=== PATIENT | male | born 1965 | race Caucasian/White ===

== ENCOUNTER 2016-03-14 17:28 | Inpatient (IN) | payer OTHER, MEDICAID ==
[~2016-03-14] VITALS: Ht 175.3 cm; Wt 65.8 kg
[~2016-03-14 17:28] MED LIST: ALBU8.5H8 IH; BEN50 PO; ENAL20TA PO; ENAL20TA70 PO; FURO80TA86 PO; HYDR-1115 PO; HYDR1TAB4 PO; ISOS20TA8 PO; LABE200T PO; LABE200T28 PO; LORA2TAB95 PO; LOVA20TA2 PO; NIFE90TA58 PO; NITSL SL; RABE20TA5 PO; RENVELA; SEVE800T10 PO; ZOLP10TA2 PO
[2016-03-14 17:30] VITALS: BP 194/105; PULSE 114; RESP 18; TEMP 99.9; O2SAT 86
[2016-03-14] MEDS ORDERED: IPRATROPIUM BROM 0.5 MG/2.5 ML VIAL.NEB (ATROVENT) INH ONE (17:45)
[2016-03-14] MEDS ORDERED: ALBUTEROL SULFATE 0.083% 2.5 MG/3 ML VIAL.NEB INH PRN (17:45)
[2016-03-14 18:09] LABS: BASOPHILS % (AUTO) 0.7 % (0.0-2.0); EOSINOPHILS # (AUTO) 0.1 K/uL (0.0-0.4); EOSINOPHILS % (AUTO) 1.5 % (0.0-4.0); HEMATOCRIT 34.3 % (36-54); HEMOGLOBIN 11.2 g/dL (14.0-18.0); LYMPHOCYTES # (AUTO) 0.4 K/uL (1.0-5.5); LYMPHOCYTES % (AUTO) 6.3 % (20.5-51.5); MEAN CORPUSCULAR HEMOGLOBIN 27 pg (27-31); MEAN CORPUSCULAR HGB CONC 33 % (32-36); MEAN CORPUSCULAR VOLUME 82 fL (79.0-98.0); MONOCYTES # (AUTO) 0.5 K/uL (0.0-1.0); MONOCYTES % (AUTO) 7.6 % (1.7-9.3); NEUTROPHILS # (AUTO) 6.1 K/uL (1.8-7.7); NEUTROPHILS % (AUTO) 83.9 % (40.0-70.0); PLATELET COUNT (AUTO) 183 K/uL (130-430); RED BLOOD CELL COUNT(AUTO) 4.18 MIL/uL (4.2-6.2); RED CELL DISTRIBUTION WIDTH 15.8 % (9.0-15.0); WHITE BLOOD COUNT (AUTO) 7.1 K/uL (4.8-10.8)
[2016-03-14 18:12] LABS: CALCIUM 9.9 mg/dL (8.4-11.0); POTASSIUM 4.7 mmol/L (3.5-5.1)
[2016-03-14 18:14] LABS: PROTHROMBIN TIME 11.2 SECS (9.5-12.5)
[2016-03-14 18:17] LABS: ALBUMIN 3.2 g/dL (3.4-4.8); TOTAL BILIRUBIN 0.5 mg/dL (0.0-1.0); TOTAL PROTEIN, SERUM 8.9 g/dL (6.4-8.3)
[2016-03-14 18:27] LABS: CREATININE 8.92 mg/dL (0.55-1.30)
[2016-03-14] MEDS ORDERED: LEVOFLOXACIN 500 MG/D5W 100 ML IV ONE (18:30)
[2016-03-14] MEDS ORDERED: DIPHENHYDRAMINE INJ 50 MG/ML VIAL IVP ONE (19:00)
[2016-03-14] MEDS ORDERED: MORPHINE 2 MG/ML INJ. SYRINGE IVP ONE (19:00)
[2016-03-14] MEDS ORDERED: METOPROLOL TARTRATE 5 MG/5 ML VIAL ONE (19:40)
[2016-03-14] MEDS ORDERED: METOPROLOL TARTRATE 5 MG/5 ML VIAL IVP ONE (19:45)
[2016-03-14] MEDS ORDERED: cloNIDine HCL 0.1 MG TABLET PO ONE (20:30)
[2016-03-14] MEDS ORDERED: INSULIN REGULAR, HUMAN 100 UNITS/ML, 10 ML VIAL (novoLIN R) SUBCUT PRN (20:45)
[2016-03-14] MEDS ORDERED: MILK OF MAGNESIA 30 ML UDC PO PRN (20:45)
[2016-03-14] MEDS ORDERED: NITROGLYCERIN 0.4 MG TAB.SUBL SL SCH (20:45)
[2016-03-14] MEDS ORDERED: LORazepam 1 MG TABLET PO ONE ×2 (20:45→21:00)
[2016-03-14] MEDS ORDERED: LevALBUTEROL HCL 1.25 MG/0.5 ML *CONC.* VIAL.NEB (XOPENEX CONC.) INH PRN (20:45)
[2016-03-14] MEDS ORDERED: hydrALAZINE HCL 20 MG/ML VIAL ONE (20:46)
[2016-03-14] MEDS ORDERED: LORazepam 1 MG TABLET ONE (20:48)
[2016-03-14] MEDS ORDERED: hydrALAZINE HCL 20 MG/ML VIAL IVP ONE (21:00)
[2016-03-14] MEDS ORDERED: ACETAMINOPHEN 650 MG SUPP.RECT RC PRN (21:00)
[2016-03-14 21:21] VITALS: BP 186/103; PULSE 105; RESP 27; TEMP 99.4; O2SAT 92
[2016-03-14] MEDS: hydrALAZINE HCL 25 MG TABLET PO SCH (21:41)
[2016-03-14] MEDS: ISOSORBIDE DINITRATE 20 MG TABLET (ISORDIL) PO SCH (21:41)
[2016-03-14] MEDS: LORazepam 1 MG TABLET PO SCH (21:41)
[2016-03-14] MEDS: ENALAPRIL MALEATE 10 MG TABLET (VASOTEC) PO SCH (21:42)
[2016-03-14 22:00] VITALS: BP 179/101; PULSE 102; RESP 26; O2SAT 93
[2016-03-14] MEDS ORDERED: AZITHROMYCIN 500 MG/VIAL (ZITHROMAX) IV ONE (22:01)
[2016-03-14] MEDS ORDERED: cefTRIAXone 1 GM IVPB PREMIX 50 ML IV ONE (22:01)
[2016-03-14] MEDS: FUROSEMIDE 80 MG TABLET PO SCH (22:02)
[2016-03-14] MEDS: AZITHROMYCIN 500 MG in NS 250 ML IV SCH (22:06)
[2016-03-14] MEDS: cefTRIAXone 1 GM in D5W 50 ML IV SCH (22:17)
[2016-03-14 23:00] VITALS: BP 124/84; PULSE 93; RESP 28; O2SAT 95
[2016-03-14 23:20] VITALS: BP 128/26; PULSE 94
[2016-03-15] VITALS (20 sets, daily range): BP systolic 105–177; BP diastolic 63–103; PULSE 80–100; RESP 18–36; TEMP 98.2–99.2; O2SAT 95–98
[2016-03-15] MEDS: hydrALAZINE HCL 20 MG/ML VIAL IVP PRN ×3 (03:18→16:08)
[2016-03-15] MEDS: MORPHINE 2 MG/ML INJ. SYRINGE IVP PRN ×2 (04:51→13:00)
[2016-03-15] MEDS ORDERED: LOVASTATIN 20 MG TABLET PO SCH (09:00)
[2016-03-15] MEDS: ENALAPRIL MALEATE 10 MG TABLET (VASOTEC) PO SCH ×2 (09:18→21:05)
[2016-03-15] MEDS: LORazepam 1 MG TABLET PO SCH ×2 (09:18→20:59)
[2016-03-15] MEDS: ISOSORBIDE DINITRATE 20 MG TABLET (ISORDIL) PO SCH ×2 (09:18→20:59)
[2016-03-15] MEDS: hydrALAZINE HCL 25 MG TABLET PO SCH ×3 (09:19→20:58)
[2016-03-15] MEDS: FUROSEMIDE 80 MG TABLET PO SCH ×2 (09:21→20:59)
[2016-03-15] MEDS ORDERED: CARVEDILOL 6.25 MG TABLET (COREG) PO ONE (13:15)
[2016-03-15] MEDS ORDERED: GABAPENTIN 100 MG CAPSULE PO ONE (13:15)
[2016-03-15] MEDS: cefTRIAXone 1 GM in D5W 50 ML IV SCH (20:57)
[2016-03-15] MEDS: CARVEDILOL 6.25 MG TABLET (COREG) PO SCH (20:58)
[2016-03-15] MEDS: GABAPENTIN 100 MG CAPSULE PO SCH (20:58)
[2016-03-15] MEDS: SIMVASTATIN 10 MG TABLET PO SCH (21:00)
[2016-03-15] MEDS: AZITHROMYCIN 500 MG in NS 250 ML IV SCH (21:52)
[2016-03-15] MEDS: ZOLPIDEM TARTRATE 5 MG TABLET PO SCH (23:20)
[2016-03-16] VITALS (8 sets, daily range): BP systolic 119–179; BP diastolic 70–101; PULSE 85–96; RESP 18–20; TEMP 96.9–98.8; O2SAT 90–98; Ht 175.3 cm; Wt 65.8 kg
[2016-03-16] MEDS: ISOSORBIDE DINITRATE 20 MG TABLET (ISORDIL) PO SCH ×2 (08:19→20:48)
[2016-03-16] MEDS: ENALAPRIL MALEATE 10 MG TABLET (VASOTEC) PO SCH ×2 (08:20→20:50)
[2016-03-16] MEDS: CARVEDILOL 6.25 MG TABLET (COREG) PO SCH ×2 (08:20→20:49)
[2016-03-16] MEDS: GABAPENTIN 100 MG CAPSULE PO SCH ×2 (08:21→20:47)
[2016-03-16] MEDS: hydrALAZINE HCL 25 MG TABLET PO SCH ×3 (08:21→20:51)
[2016-03-16] MEDS: FUROSEMIDE 80 MG TABLET PO SCH ×2 (08:22→20:48)
[2016-03-16] MEDS: LORazepam 1 MG TABLET PO SCH ×2 (08:22→20:51)
[2016-03-16] MEDS ORDERED: NIFEDIPINE 90 MG TABLET.SA (PROCARDIA XL 90 MG) PO ONE (15:45)
[2016-03-16] MEDS: SIMVASTATIN 10 MG TABLET PO SCH (20:47)
[2016-03-16] MEDS: AZITHROMYCIN 500 MG in NS 250 ML IV SCH (21:49)
[2016-03-16] MEDS: cefTRIAXone 1 GM in D5W 50 ML IV SCH (21:49)
[2016-03-16] MEDS: ZOLPIDEM TARTRATE 5 MG TABLET PO SCH (23:29)
[2016-03-17 04:37] VITALS: BP 126/71; PULSE 88; RESP 18; TEMP 98.6; O2SAT 92
[2016-03-17 07:43] LABS: CALCIUM 9.3 mg/dL (8.4-11.0); POTASSIUM 4.1 mmol/L (3.5-5.1)
[2016-03-17 08:02] LABS: CREATININE 9.43 mg/dL (0.55-1.30)
[2016-03-17 08:05] LABS: HEMATOCRIT 29.2 % (36-54); HEMOGLOBIN 9.6 g/dL (14.0-18.0); MEAN CORPUSCULAR HEMOGLOBIN 27 pg (27-31); MEAN CORPUSCULAR HGB CONC 33 % (32-36); MEAN CORPUSCULAR VOLUME 83 fL (79.0-98.0); PLATELET COUNT (AUTO) 141 K/uL (130-430); RED BLOOD CELL COUNT(AUTO) 3.51 MIL/uL (4.2-6.2); RED CELL DISTRIBUTION WIDTH 16.1 % (9.0-15.0); WHITE BLOOD COUNT (AUTO) 3.7 K/uL (4.8-10.8)
[2016-03-17] MEDS: GABAPENTIN 100 MG CAPSULE PO SCH (08:26)
[2016-03-17] MEDS: FUROSEMIDE 80 MG TABLET PO SCH (08:26)
[2016-03-17] MEDS: hydrALAZINE HCL 25 MG TABLET PO SCH ×2 (08:26→15:31)
[2016-03-17] MEDS: ENALAPRIL MALEATE 10 MG TABLET (VASOTEC) PO SCH (08:26)
[2016-03-17] MEDS: LORazepam 1 MG TABLET PO SCH (08:27)
[2016-03-17] MEDS: ISOSORBIDE DINITRATE 20 MG TABLET (ISORDIL) PO SCH (08:27)
[2016-03-17] MEDS: CARVEDILOL 6.25 MG TABLET (COREG) PO SCH (08:27)
[2016-03-17 08:31] VITALS: BP 141/78; PULSE 92; RESP 20; TEMP 98.7; O2SAT 94
[2016-03-17] MEDS ORDERED: NIFEDIPINE 90 MG TABLET.SA (PROCARDIA XL 90 MG) PO SCH (09:00)
[2016-03-17 11:37] VITALS: BP 134/68; PULSE 80; RESP 16; TEMP 97; O2SAT 96
[2016-03-17 11:54] LABS: ATYPICAL LYMPHOCYTES % 0 % (0-0); BAND % (MANUAL) 0 % (0-6); BASOPHILS % (MANUAL) 0 % (0-2); EOSINOPHILS % (MANUAL) 9 % (0-7); LYMPHOCYTES % (MANUAL) 12 % (20-46); MONOCYTES % (MANUAL) 12 % (0-11)
[2016-03-17 15:35] VITALS: BP 116/63; PULSE 56; RESP 16; TEMP 98.6; O2SAT 95
[2016-03-17] MEDS ORDERED: ALPRAZolam 0.25 MG TABLET PO PRN (17:30)
[2016-03-17 19:39] VITALS: BP 118/65; PULSE 58; RESP 16; TEMP 98.6; O2SAT 95
== END 2016-03-17 20:27 | disposition home or self-care (01) | DRG 193 ==
LOC: SED 17:28 → STU 19:14 → SIC 20:24 → STU 03-15 19:31 → SMU 03-16 20:46
PROVIDERS: ADMIT Family Medicine; ATTEND Family Medicine
PROC: 5A1D00Z (ICD-10-PCS; principal; 2016-03-16)
DX: J18.9 Pneumonia, unspecified organism (principal); N18.6 End stage renal disease; I13.2 Hypertensive heart and chronic kidney disease with heart failure and with stage 5 chronic kidney disease, or end stage renal disease; J44.0 Chronic obstructive pulmonary disease with (acute) lower respiratory infection; E44.0 Moderate protein-calorie malnutrition; I16.9 Hypertensive crisis, unspecified; D63.1 Anemia in chronic kidney disease; E11.22 Type 2 diabetes mellitus with diabetic chronic kidney disease; E78.5 Hyperlipidemia, unspecified; F41.9 Anxiety disorder, unspecified; H54.8 Legal blindness, as defined in USA; I50.9 Heart failure, unspecified; Z87.891 Personal history of nicotine dependence; Z99.2 Dependence on renal dialysis; Z82.49 Family history of ischemic heart disease and other diseases of the circulatory system; Z83.3 Family history of diabetes mellitus
CPT/HCPCS: 36415; 71010; 80048; 80053; 82962; 83605; 83880; 84484; 85007; 85025; 85027; 85610-TC; 87040-TC; 87081; 90935; 93005; 94640; 96365; 96375; 99285; J0360; J0456; J0696; J1200; J1815; J1956; J2270; J3490; J7030; J7040; J7050; J7060

== ENCOUNTER 2016-04-09 14:43 | Inpatient (IN) | payer OTHER, MEDICAID ==
[~2016-04-09] VITALS: Ht 172.7 cm; Wt 64.4 kg
[2016-04-09 15:26] VITALS: BP 185/115; PULSE 97; RESP 17; TEMP 97.8; O2SAT 90
--- NOTE | 2016-04-09 15:30 | NUR ---
Pt to bed 5, report given to Bria
--- NOTE | 2016-04-09 15:45 | NUR ---
Dr Boykin at bedside examining patient
--- NOTE | 2016-04-09 15:45 | NUR ---
# 22 gauge angiocath placed to right forearm. Use of asceptic technique. Opsite placed over site. Blood return noted. Flushed with 10 cc of normal saline. No evidence of infiltration noted. Patient tolerated well.
--- NOTE | 2016-04-09 15:46 | NUR ---
Pt brought by self,A&Ox4, anxious,pt c/o generalized weakness, SOB, productive cough, last dialysis done yesterday, cap refill <3, pt has fistula on L forearm intact, VSS.
[2016-04-09 15:52] LABS: BASOPHILS % (AUTO) 1.2 % (0.0-2.0); EOSINOPHILS # (AUTO) 0.1 K/uL (0.0-0.4); EOSINOPHILS % (AUTO) 3.9 % (0.0-4.0); HEMATOCRIT 38.4 % (36-54); HEMOGLOBIN 12.4 g/dL (14.0-18.0); LYMPHOCYTES # (AUTO) 0.4 K/uL (1.0-5.5); LYMPHOCYTES % (AUTO) 10.2 % (20.5-51.5); MEAN CORPUSCULAR HEMOGLOBIN 27 pg (27-31); MEAN CORPUSCULAR HGB CONC 32 % (32-36); MEAN CORPUSCULAR VOLUME 84 fL (79.0-98.0); MONOCYTES # (AUTO) 0.3 K/uL (0.0-1.0); MONOCYTES % (AUTO) 9.3 % (1.7-9.3); NEUTROPHILS % (AUTO) 75.4 % (40.0-70.0); PLATELET COUNT (AUTO) 160 K/uL (130-430); WHITE BLOOD COUNT (AUTO) 3.8 K/uL (4.8-10.8)
[2016-04-09] MEDS ORDERED: methylPREDNISolone SOD SUCC/PF 62.5 MG/ML VIAL IVP ONE (16:00)
[2016-04-09] MEDS ORDERED: LORazepam 2 MG/ML VIAL (FOR ER USE) IVP ONE (16:00)
[2016-04-09] MEDS ORDERED: IPRATROPIUM/ALBUTEROL SULFATE 3 ML AMPUL.NEB INH ONE (16:00)
[2016-04-09 16:13] LABS: CALCIUM 9.6 mg/dL (8.4-11.0); POTASSIUM 4.1 mmol/L (3.5-5.1)
[2016-04-09 16:23] LABS: CREATININE 11.77 mg/dL (0.55-1.30)
[2016-04-09 16:25] LABS: ALBUMIN 3.4 g/dL (3.4-4.8); TOTAL BILIRUBIN 0.5 mg/dL (0.0-1.0); TOTAL PROTEIN, SERUM 8.9 g/dL (6.4-8.3)
[2016-04-09] MEDS ORDERED: ONDANSETRON HCL 4 MG/2 ML VIAL IVP ONE ×2 (16:30→17:30)
--- NOTE | 2016-04-09 17:00 | NUR ---
Medication reconciliation completed with information provided by patient . Any prior medication reconciliation on file was reviewed and corrected.
[2016-04-09] MEDS ORDERED: MORPHINE 4 MG/ML INJ. SYRINGE IVP ONE (17:30)
[2016-04-09] MEDS ORDERED: PIPERACILLIN/TAZO 3.375 GM in NS 50 ML IV ONE (18:15)
[2016-04-09] MEDS ORDERED: VANCOMYCIN HCL 1,000 MG in NS 250 ML IV ONE (18:15)
[2016-04-09] MEDS ORDERED: PIPERACILLIN/TAZOBACTAM 3.375 GM/VIAL (ZOSYN) IV ONE (18:17)
--- NOTE | 2016-04-09 18:30 | NUR ---
ADMIT NOTE Received pt from ER to the floor with a diagnosis of PNEUMONIA, CHF. Admission process initiated. patient oriented to pain management, safety and call light-teach back done.
--- NOTE | 2016-04-09 18:35 | NUR ---
Patient will be admitted to care of Dr Gibbs . Admitted to unit. Will go to room 135. Belongings list completed. Summary report printed. Report given to Annemarie MARINELLI .
[2016-04-09 18:42] VITALS: BP 156/96; PULSE 97; RESP 18; TEMP 97.9; O2SAT 93
[2016-04-09 19:15] VITALS: BP 159/94; PULSE 96; RESP 18; TEMP 98.6
--- NOTE | 2016-04-09 19:29 | NUR ---
lab called : called lab and talked with mayo , informed him that the 2nd lactic acid is still showing active in the order and no result ,mayo stated he is not sure he will follow up .
[2016-04-09] MEDS ORDERED: LevALBUTEROL HCL 1.25 MG/0.5 ML *CONC.* VIAL.NEB (XOPENEX CONC.) INH PRN (19:30)
[2016-04-09] MEDS ORDERED: NITROGLYCERIN 0.4 MG TAB.SUBL SL PRN (19:30)
[2016-04-09] MEDS ORDERED: MILK OF MAGNESIA 30 ML UDC PO PRN (19:30)
--- NOTE | 2016-04-09 19:40 | NUR ---
INITIAL NOTES: PT IS A/O X3, ON O2 4L NC WITH SAT OF 94% AT THIS TIME , WILL MONITOR O2 SAT , DENIED ANY CHEST PAIN OR SOB AT THIS TIME ; ASSESSMENT DONE ; PT IS BLIND ; EDUCATED PT ; ENCOURAGED PT TO CALL FOR ANY HELP ; IV ON THE R FA 22 G, PATENT ,VANCOMYCIN IS STILL INFUSING STARTED IN ER ; PT DENIED ANY S/S OF ALLERGIC REACTION ; CALL GIFFORD IN REACH ; BED IN LOW AND LOCK POSITION ; WILL CONTINUE TO MONITOR.
[2016-04-09] MEDS ORDERED: DEXTROSE 50%-WATER 50 ML DISP.SYRIN IVP PRN ×2 (19:45)
[2016-04-09] MEDS ORDERED: ACETAMINOPHEN 325 MG TABLET PO PRN (19:45)
[2016-04-09] MEDS ORDERED: GLUCOSE 15 GM GEL (in 37.5 GM TUBE) PO PRN ×2 (19:45)
[2016-04-09 20:37] VITALS: BP 159/94; PULSE 96
[2016-04-09] MEDS: ENALAPRIL MALEATE 10 MG TABLET (VASOTEC) PO SCH (21:24)
[2016-04-09] MEDS: LACTOBACILLUS RHAMNOSUS GG 1 CAP CAPSULE PO SCH (21:24)
[2016-04-09] MEDS: FUROSEMIDE 80 MG TABLET PO SCH (21:24)
[2016-04-09] MEDS: hydrALAZINE HCL 25 MG TABLET PO SCH (21:25)
[2016-04-09] MEDS: SIMVASTATIN 10 MG TABLET PO SCH (21:25)
[2016-04-09] MEDS: ISOSORBIDE DINITRATE 20 MG TABLET (ISORDIL) PO SCH (21:25)
[2016-04-09] MEDS: LORazepam 1 MG TABLET PO SCH (21:26)
[2016-04-09] MEDS: INSULIN REGULAR, HUMAN 100 UNITS/ML, 10 ML VIAL (novoLIN R) SUBCUT PRN (21:34)
--- NOTE | 2016-04-09 21:35 | NUR ---
MEDICATION: DUE MEDS GIVEN ; PT IS COMFORTABLE ; ATIVAN 2 MG PER ORDER GIVEN AFTER CONFIRMING WITH THE PT AND PREVIOUS HOSPITAL RECORDS.BS 206, PROVIDED 4 UNITS OF REGULAR INSULIN ; PT RECEIVED HIS DINNER EARLIER ;WILL CONTINUE TO MONITOR.
--- NOTE | 2016-04-09 22:00 | NUR ---
URINE ANALYSIS : NOTICED THAT UA ORDER FROM ER IS NOT COLLECTED ;PROVIDED URINE COLLECTION CUP FOR UA AND EXPLAINED TO THE PT AND ENCOURAGED PT TO CALL FOR ASSIST .
--- NOTE | 2016-04-09 22:00 | NUR ---
SCD: PT REFUSED TO PUT SCD , EDUCATED PT THE NEED FOR IT, PT STATED "I CAN WALK , I NEVER HAD BLOOD CLOT " . WILL REEDUCATE PT .
--- NOTE | 2016-04-09 23:44 | NUR ---
CONSULT CALLED: Reason for Consultation: ESRF Was consult called: Yes Person who was interact: Jessi Consulting Physician: Dr. Deejay Toeldo Specialty: Renal Ux Information Architect Addendum: 04/10/16 at 0001 by Marline Vieyra CNA CONSULT CALLED: Reason for Consultation: ESRF Was consult called: Yes Person who was notified: Jessi Consulting Physician: Dr. Deejay Toledo Specialty: Nephro Ux Information Architect
[2016-04-09] MEDS: PIPERACILLIN/TAZO 2.25G/DEX-IS 50 ML IV SCH (23:56)
--- NOTE | 2016-04-10 | NUR ---
RN ROUNDS: PT IS SLEEPING, EASILY AROUSABLE ; NOT IN ANY ACUTE DISTRESS; DUE MED GIVEN ; PT IS COMFORTABLE ; DENIED ANY ALLERGIC REACTION AT THIS TIME; VITALS ARE STABLE ; WILL CONTINUE TO MONITOR.
[2016-04-10 00:31] VITALS: BP 130/73; PULSE 81; RESP 18; TEMP 97.8; O2SAT 100
[2016-04-10] MEDS: LevALBUTEROL HCL 1.25 MG/0.5 ML *CONC.* VIAL.NEB (XOPENEX CONC.) INH SCH ×4 (01:34→19:54)
--- NOTE | 2016-04-10 02:00 | NUR ---
RN ROUNDS: PT IS SLEEPING, NOT IN ANY ACUTE DISTRESS; WILL CONTINUE TO MONITOR.
--- NOTE | 2016-04-10 04:00 | NUR ---
RN ROUNDS: PT IS SLEEPING COMFORTABLY, NOT IN ANY ACUTE DISTRESS;ON O2 4 L NC ; WILL CONTINUE TO MONITOR.
[2016-04-10 04:25] VITALS: BP 119/60; PULSE 88; RESP 20; TEMP 98.4; O2SAT 94
[2016-04-10] MEDS: PIPERACILLIN/TAZO 2.25G/DEX-IS 50 ML IV SCH ×3 (05:47→17:39)
[2016-04-10] MEDS: INSULIN REGULAR, HUMAN 100 UNITS/ML, 10 ML VIAL (novoLIN R) SUBCUT PRN ×4 (06:04→22:36)
--- NOTE | 2016-04-10 06:20 | NUR ---
RN NOTES: BS 194, 2 UNITS OF R INSULIN GIVEN ORDERED .DUE IV ZOSYN IS INFUSING WELL ; PT IS COMFORTABLE .
--- NOTE | 2016-04-10 06:58 | NUR ---
CLOSING NOTES: PT IS COMFORTABLE ; ON O2 4 L NC , SAT 94% ;ZOSYN IS COMPLETED AND IV IS SL ; NOT IN ANY ACUTE DISTRESS; NO SIGNIFICANT CHANGES IN THE CONDITION ; WILL CONTINUE TO MONITOR AND WILL ENDORSE TO NEXT SHIFT NURSE .
[2016-04-10 07:18] LABS: BASOPHILS % (AUTO) 0.1 % (0.0-2.0); HEMOGLOBIN 11.2 g/dL (14.0-18.0); LYMPHOCYTES # (AUTO) 0.2 K/uL (1.0-5.5); MEAN CORPUSCULAR HEMOGLOBIN 28 pg (27-31); MEAN CORPUSCULAR HGB CONC 33 % (32-36); MEAN CORPUSCULAR VOLUME 84 fL (79.0-98.0); MONOCYTES # (AUTO) 0.1 K/uL (0.0-1.0); MONOCYTES % (AUTO) 2.2 % (1.7-9.3); NEUTROPHILS # (AUTO) 2.8 K/uL (1.8-7.7); NEUTROPHILS % (AUTO) 89.7 % (40.0-70.0); PLATELET COUNT (AUTO) 125 K/uL (130-430); RED BLOOD CELL COUNT(AUTO) 4.05 MIL/uL (4.2-6.2); RED CELL DISTRIBUTION WIDTH 16.3 % (9.0-15.0); WHITE BLOOD COUNT (AUTO) 3.1 K/uL (4.8-10.8)
[2016-04-10 07:24] LABS: CALCIUM 9.3 mg/dL (8.4-11.0); POTASSIUM 4.2 mmol/L (3.5-5.1)
--- NOTE | 2016-04-10 07:30 | NUR ---
rn notes: patient is aaox 4. afebrile. vss stable. lungs bilaterally with slight crackles noted. has 4lnc of oxygen noted. abdomen soft and non distended..has left forearm av shunt with palpable thrill and bruit noted. bed in low position. patient is legally blind on both eyes. call lights within reach. safety measures maintained. hourly rounding. informed patient to call for assistance at anytime. has iv access on the rt forearm #22. dry/intact/patent.
[2016-04-10 07:37] LABS: CREATININE 13.08 mg/dL (0.55-1.30)
[2016-04-10 07:49] VITALS: BP 148/95; PULSE 86; RESP 16; TEMP 97; O2SAT 98
--- NOTE | 2016-04-10 08:00 | NUR ---
eating food tolerating well. stable. no pain.
--- NOTE | 2016-04-10 08:23 | NUR ---
CALLED NEPHROLOGY CONSULT , DR TAVARES RE: REMIND OF THE CONSULT (ESRD) AND ELEVATED BUN AND CREATININE. SPOKE TO LEIGHA
[2016-04-10] MEDS ORDERED: LOVASTATIN 20 MG TABLET PO SCH (09:00)
--- NOTE | 2016-04-10 09:00 | NUR ---
watching tv. no pain nor distress noted. stable.
--- NOTE | 2016-04-10 09:04 | NUR ---
Nutrition Update Kevin Scale 16 noted. Pt admitted for pneumonia, CHF. Diet: CCHO, 2 gm Na BMI: 22 kg/m2 RD to follow per nutrition care standards.
--- NOTE | 2016-04-10 10:00 | NUR ---
refused medication at this time due to dialysis possibly today.
[2016-04-10] MEDS: LORazepam 1 MG TABLET PO SCH ×2 (10:04→15:58)
[2016-04-10] MEDS: FUROSEMIDE 80 MG TABLET PO SCH ×2 (10:06→20:47)
--- NOTE | 2016-04-10 10:09 | NUR ---
requested to have ativan 2 mg po due anxiety. lasix 80mg po bp is 144/101. awaiting for Dr Villalba to called back.
--- NOTE | 2016-04-10 11:46 | NUR ---
latest bs is 149 mg/dl. no coverage given as ordered.
--- NOTE | 2016-04-10 11:47 | NUR ---
Dr Villalba came and evaluate the patient.
[2016-04-10 12:14] VITALS: Ht 172.7 cm; Wt 64.4 kg
[2016-04-10 12:41] VITALS: BP 138/83; PULSE 87; RESP 16; TEMP 97.1; O2SAT 99
--- NOTE | 2016-04-10 13:00 | NUR ---
assisted to the bathroom at this time. no pain nor distress noted.
--- NOTE | 2016-04-10 14:00 | NUR ---
Dialysis started at this time. patient is in pain.
[2016-04-10] MEDS: HYDROcodone/ACETAMIN 10-325 MG TAB PO PRN ×2 (14:13→20:43)
--- NOTE | 2016-04-10 14:25 | NUR ---
urine sent to lab brought by Radha to laboratory for urinalysis.
--- NOTE | 2016-04-10 15:32 | NUR ---
still on the process of dialysis procedure.
--- NOTE | 2016-04-10 16:30 | NUR ---
assisted to the bathroom. stable. dialysis done at this time. dialysis output 3.600liters..
[2016-04-10 17:12] VITALS: BP 151/84; PULSE 90; RESP 16; TEMP 97.6; O2SAT 100
[2016-04-10] MEDS: ENALAPRIL MALEATE 10 MG TABLET (VASOTEC) PO SCH ×2 (17:43→22:33)
[2016-04-10] MEDS: hydrALAZINE HCL 25 MG TABLET PO SCH ×3 (17:44→20:46)
[2016-04-10] MEDS: ISOSORBIDE DINITRATE 20 MG TABLET (ISORDIL) PO SCH ×2 (17:45→20:44)
[2016-04-10] MEDS: LACTOBACILLUS RHAMNOSUS GG 1 CAP CAPSULE PO SCH ×2 (17:45→20:48)
--- NOTE | 2016-04-10 18:23 | NUR ---
latest bs is 142mg/dl. no coverage given at this time.
--- NOTE | 2016-04-10 19:33 | NUR ---
sbar report given to incoming nurse Kike MARINELLI
--- NOTE | 2016-04-10 19:40 | NUR ---
initial nursing notes: Patient is awake. Patient has impaired vision on both eyes. Patient has an IV access on the right forearm. Patient has an AV shunt on the LUE.
--- NOTE | 2016-04-10 20:13 | NUR ---
paged for Dr Gibbs, dialed pager #: .
[2016-04-10] MEDS: SIMVASTATIN 10 MG TABLET PO SCH (20:48)
--- NOTE | 2016-04-10 21:40 | NUR ---
nursing rounds: Patient's BP is elevated: 191/109 mmHg and P=90 bpm, Dr. Gibbs notified no new order given. Patient stated that he's BP is "usually high." Patient denies of having pain. Patient denies of having headache.
--- NOTE | 2016-04-10 23:40 | NUR ---
nursing rounds: Patient ambulates to the bathroom with assist. Patient had no episode of fall and no injuries.
[2016-04-11] VITALS (7 sets, daily range): BP systolic 140–196; BP diastolic 77–115; PULSE 82–102; RESP 16–18; TEMP 96.6–98.9; O2SAT 92–98
[2016-04-11] MEDS: PIPERACILLIN/TAZO 2.25G/DEX-IS 50 ML IV SCH ×5 (00:18→23:38)
[2016-04-11] MEDS: LevALBUTEROL HCL 1.25 MG/0.5 ML *CONC.* VIAL.NEB (XOPENEX CONC.) INH SCH ×4 (00:30→20:20)
--- NOTE | 2016-04-11 01:40 | NUR ---
nursing rounds: Patient is asleep. Patient has no shortness of breath.
--- NOTE | 2016-04-11 03:40 | NUR ---
nursing rounds: Patient ambulates to the bathroom with assist. Patient had no episode of fall and no injuries.
--- NOTE | 2016-04-11 05:40 | NUR ---
nursing rounds: Patient is sleeping in bed. Patient has no respiratory distress.
[2016-04-11 07:13] LABS: CALCIUM 9.4 mg/dL (8.4-11.0); POTASSIUM 3.9 mmol/L (3.5-5.1)
[2016-04-11 07:29] LABS: CREATININE 9.05 mg/dL (0.55-1.30)
--- NOTE | 2016-04-11 07:30 | NUR ---
Initial notes: pt awake, alert and oriented. I.V. access patent. Stable. Blind on both eyes. Plan of care discussed. Call light within reach. Report given at bedside.
--- NOTE | 2016-04-11 07:31 | NUR ---
closing nursing notes: Patient is awake, alert and oriented X 4. Patient is in no acute respiratory distress. 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 Provided nursing report to incoming morning shift nurse, Sola Bonilla RN, at patient's bedside.
[2016-04-11] MEDS: LORazepam 1 MG TABLET PO SCH ×2 (08:29→20:39)
[2016-04-11] MEDS: FUROSEMIDE 80 MG TABLET PO SCH ×2 (08:30→20:24)
--- NOTE | 2016-04-11 08:30 | NUR ---
rounds: V/S taken. Increased BP. morning medication given including hypertension meds. Continue to monitor BP.
[2016-04-11] MEDS: hydrALAZINE HCL 25 MG TABLET PO SCH ×3 (08:31→22:43)
[2016-04-11] MEDS: ISOSORBIDE DINITRATE 20 MG TABLET (ISORDIL) PO SCH ×2 (08:31→20:40)
[2016-04-11] MEDS: LACTOBACILLUS RHAMNOSUS GG 1 CAP CAPSULE PO SCH ×2 (08:31→20:40)
[2016-04-11] MEDS: ENALAPRIL MALEATE 10 MG TABLET (VASOTEC) PO SCH ×2 (08:32→20:20)
[2016-04-11] MEDS: HYDROcodone/ACETAMIN 10-325 MG TAB PO PRN (10:22)
--- NOTE | 2016-04-11 13:13 | NUR ---
rounds: pt on bed resting. no distress noted.
--- NOTE | 2016-04-11 14:30 | NUR ---
Increased BP: Adrian paged for high BP. Adrian came to the unit with new order.
[2016-04-11] MEDS ORDERED: NIFEDIPINE 90 MG TABLET.SA (PROCARDIA XL 90 MG) PO ONE (15:00)
[2016-04-11] MEDS ORDERED: hydrALAZINE HCL 25 MG TABLET PO ONE (15:00)
--- NOTE | 2016-04-11 15:10 | NUR ---
medication: new medication given to pt for high BP. Pt after taken the medication requested to sleep and not to be disturbed.
--- NOTE | 2016-04-11 16:30 | NUR ---
blood sugar: accu check done. no insulin coverage needed.
--- NOTE | 2016-04-11 19:00 | NUR ---
closing notes: pt on bed resting. stable. call light within reach. report given to bedside.
--- NOTE | 2016-04-11 19:30 | NUR ---
initial nursing notes: Patient is awake. Patient's IV access on the right forearm intact. Patient denies of having pain. Patient stated that he will have dialysis tomorrow.
[2016-04-11] MEDS: SIMVASTATIN 10 MG TABLET PO SCH (20:25)
--- NOTE | 2016-04-11 21:30 | NUR ---
nursing rounds: Patient ambulates to the bathroom with assist. Patient had no episode of fall and no injuries.
--- NOTE | 2016-04-11 23:30 | NUR ---
nursing rounds: Patient is sleeping in bed. Patient has no respiratory distress.
[2016-04-12 00:23] VITALS: BP 134/85; PULSE 102; RESP 18; TEMP 99.2; O2SAT 93
[2016-04-12] MEDS: LevALBUTEROL HCL 1.25 MG/0.5 ML *CONC.* VIAL.NEB (XOPENEX CONC.) INH SCH ×4 (01:20→19:30)
--- NOTE | 2016-04-12 01:30 | NUR ---
nursing rounds: Patient requested for his blood sugar to be rechecked. Patient's blood sugar: 111. Patient has no hypo-/hyperglycemic episode.
--- NOTE | 2016-04-12 03:30 | NUR ---
nursing rounds: Patient is asleep. Patient's bed alarm kept on.
[2016-04-12 03:34] VITALS: BP 130/75; PULSE 98; RESP 18; TEMP 98.3; O2SAT 94
[2016-04-12] MEDS: hydrALAZINE HCL 25 MG TABLET PO SCH ×3 (05:07→21:53)
[2016-04-12] MEDS: PIPERACILLIN/TAZO 2.25G/DEX-IS 50 ML IV SCH ×3 (05:09→17:25)
--- NOTE | 2016-04-12 05:30 | NUR ---
nursing rounds: Patient is sleeping in bed. Kept siderails up X 3 for patient's safety.
--- NOTE | 2016-04-12 07:16 | NUR ---
closing nursing notes: Patient is awake, alert and oriented X 4. Patient is in no acute respiratory distress. 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 Provided nursing report to incoming morning shift nurse, Sola Bonilla RN, at patient's bedside.
--- NOTE | 2016-04-12 07:30 | NUR ---
Initial rounds: pt sitting on the chair. stable. requesting Ativan. Verbalized having anxiety. call light within reach. report received at bedside.
[2016-04-12 07:50] VITALS: BP 167/103; PULSE 96
[2016-04-12 08:00] VITALS: BP 167/103; PULSE 100; RESP 18; TEMP 97.4; O2SAT 97
[2016-04-12] MEDS: LACTOBACILLUS RHAMNOSUS GG 1 CAP CAPSULE PO SCH ×2 (08:13→20:19)
[2016-04-12] MEDS: LORazepam 1 MG TABLET PO SCH (08:13)
--- NOTE | 2016-04-12 08:22 | NUR ---
medication: anxiety medication given as scheduled. withhold the BP meds due to dialysis. followed up dialysis to do in the morning.
--- NOTE | 2016-04-12 10:15 | NUR ---
Dialysis: dialysis nurse arrived. Patient will be on dialysis.
--- NOTE | 2016-04-12 11:30 | NUR ---
rounds: pt observed restless while on going dialysis. Verbalized having anxiety, anxiety meds given 2 hours ago and not yet due as schedule. He also complained of generalized pain. Pain meds given and repositioned the patient. [facility] [place]. He verbalized feeling better.
[2016-04-12] MEDS: HYDROcodone/ACETAMIN 10-325 MG TAB PO PRN ×2 (11:41→20:31)
[2016-04-12 12:27] VITALS: BP 167/94; PULSE 106; RESP 19; TEMP 97; O2SAT 91
[2016-04-12] MEDS: ENALAPRIL MALEATE 10 MG TABLET (VASOTEC) PO SCH ×2 (14:16→20:19)
[2016-04-12] MEDS: ISOSORBIDE DINITRATE 20 MG TABLET (ISORDIL) PO SCH ×2 (14:16→20:19)
[2016-04-12] MEDS: NIFEDIPINE 90 MG TABLET.SA (PROCARDIA XL 90 MG) PO SCH (14:17)
[2016-04-12] MEDS: FUROSEMIDE 80 MG TABLET PO SCH ×2 (14:18→20:18)
--- NOTE | 2016-04-12 14:20 | NUR ---
BP medication: Dialysis done and elevated BP observed. BP medication given late due to dialysis.
[2016-04-12] MEDS: LORazepam 1 MG TABLET PO PRN (16:17)
[2016-04-12 16:23] VITALS: BP 173/93; PULSE 98; RESP 18; TEMP 98.1; O2SAT 99
--- NOTE | 2016-04-12 17:20 | NUR ---
Blood sugar: accu check done. no insulin coverage needed.
--- NOTE | 2016-04-12 18:40 | NUR ---
closing notes: pt on bed resting. no distress noted. needs attended. call light within reach. report will be given to incoming nurse.
[2016-04-12] MEDS ORDERED: VANCOMYCIN HCL 750 MG in NS 250 ML IV SCH (20:00)
--- NOTE | 2016-04-12 20:00 | NUR ---
ROUNDS PATIENT RESTING COMFORTABLY IN BED, NOT IN DISTRESS, VITALS STABLE, NO PAIN AND DISCOMFORT AT THIS TIME. ASSESSMENT DONE AND DOCUMENTED. SEE FLOWSHEET. NEEDS ATTENDED TO. SAFETY AND FALL PRECAUTION MEASURES IN PLACED. BED IN LOW AND LOCKED POSITION. CALL LIGHT PLACED WITH PATIENT.
[2016-04-12] MEDS: SIMVASTATIN 10 MG TABLET PO SCH (20:19)
--- NOTE | 2016-04-12 21:15 | NUR ---
MEDICATION DUE MEDICATIONS GIVEN SCHEDULED, TOLERATED WELL. WILL CONTINUE TO MONITOR.
[2016-04-12] MEDS: ZOLPIDEM TARTRATE 5 MG TABLET PO PRN (22:19)
--- NOTE | 2016-04-13 | NUR ---
PATIENT RESTING: Patient resting quietly. No acute distress noted. Vital signs within normal range.
[2016-04-13 00:09] VITALS: BP 140/84; PULSE 95; RESP 18; TEMP 97.8; O2SAT 91
[2016-04-13] MEDS: LORazepam 1 MG TABLET PO PRN ×3 (00:47→16:45)
[2016-04-13] MEDS: PIPERACILLIN/TAZO 2.25G/DEX-IS 50 ML IV SCH ×5 (00:47→23:07)
[2016-04-13] MEDS: LevALBUTEROL HCL 1.25 MG/0.5 ML *CONC.* VIAL.NEB (XOPENEX CONC.) INH SCH ×4 (01:00→19:54)
--- NOTE | 2016-04-13 02:15 | NUR ---
ROUNDS PATIENT ASLEEP, NO SIGNS OF ANY PAIN AND DISCOMFORT NOTED. WILL CONTINUE TO MONITOR.
[2016-04-13 04:14] VITALS: BP 146/93; PULSE 99; RESP 16; TEMP 97.7; O2SAT 91
--- NOTE | 2016-04-13 04:14 | NUR ---
PATIENT RESTING: Patient resting quietly. No acute distress noted. Vital signs within normal range.
[2016-04-13] MEDS: hydrALAZINE HCL 25 MG TABLET PO SCH ×3 (05:55→22:39)
--- NOTE | 2016-04-13 06:09 | NUR ---
CLOSING NOTES PATIENT AWAKE, VITALS STABLE, DENIES ANY PAIN AT THIS TIME. ALL NEEDS ATTENDED TO. SAFETY MEASURES MAINTAINED. BED IN LOW AND LOCKED POSITION. CALL LIGHT PLACED WITHIN REACH.
[2016-04-13 06:55] LABS: BASOPHILS % (AUTO) 1.1 % (0.0-2.0); EOSINOPHILS # (AUTO) 0.3 K/uL (0.0-0.4); EOSINOPHILS % (AUTO) 7.6 % (0.0-4.0); HEMATOCRIT 35.7 % (36-54); HEMOGLOBIN 11.8 g/dL (14.0-18.0); LYMPHOCYTES # (AUTO) 0.4 K/uL (1.0-5.5); LYMPHOCYTES % (AUTO) 8.9 % (20.5-51.5); MEAN CORPUSCULAR HEMOGLOBIN 28 pg (27-31); MEAN CORPUSCULAR HGB CONC 33 % (32-36); MEAN CORPUSCULAR VOLUME 84 fL (79.0-98.0); MONOCYTES # (AUTO) 0.5 K/uL (0.0-1.0); MONOCYTES % (AUTO) 12.1 % (1.7-9.3); NEUTROPHILS # (AUTO) 3.1 K/uL (1.8-7.7); NEUTROPHILS % (AUTO) 70.3 % (40.0-70.0); PLATELET COUNT (AUTO) 189 K/uL (130-430); RED BLOOD CELL COUNT(AUTO) 4.27 MIL/uL (4.2-6.2); RED CELL DISTRIBUTION WIDTH 15.8 % (9.0-15.0); WHITE BLOOD COUNT (AUTO) 4.3 K/uL (4.8-10.8)
[2016-04-13 06:58] LABS: CALCIUM 9.1 mg/dL (8.4-11.0); POTASSIUM 4.2 mmol/L (3.5-5.1)
[2016-04-13 07:31] LABS: CREATININE 9.15 mg/dL (0.55-1.30)
--- NOTE | 2016-04-13 08:00 | NUR ---
AM NOTES PT AAOX4 WITH COMPLAINTS OF MIGRAINE HEADACHE / THAT IS ESCALATING. PT FEELS RESTLESS AND ANXIOUS. STATES HE DOES NOT FEEL TOO WELL THIS MORNING. WILL MEDICATE WITH ATIVAN. NO SOB, DIFFICULTY BREATHING OR DISTRESS NOTED. O2 VIA NASAL CANNULA @ 2L IS OFF AT THIS TIME. AV SHUNT TO LEFT FOREARM WITH BRUIT AND THRILL PRESENT. IV TO RIGHT FOREARM #22G SALINE LOCKED PATENT AND FLUSHING. PT IS ON A RESTRICTED FLUID INTAKE. INFORMED CLAIMS SPECIALIST REGARDING FLUID RESTRICTION. PT IS LEGALLY BLIND. EDUCATED ABOUT SAFETY AND FALL RISK PRECAUTIONS. FALL RISK ARM BAND PRESENT AND BED ALARM IS ARMED. PT REFUSED TO WEAR BILATERAL SCD. ENCOURAGED TO CALL FOR ASSISTANCE. CALL LIGHT WITHIN REACH. WILL MONITOR.
[2016-04-13 08:31] VITALS: BP 171/98; PULSE 105; RESP 20; TEMP 98.1; O2SAT 96
[2016-04-13] MEDS: NIFEDIPINE 90 MG TABLET.SA (PROCARDIA XL 90 MG) PO SCH (08:50)
[2016-04-13] MEDS: ENALAPRIL MALEATE 10 MG TABLET (VASOTEC) PO SCH ×2 (08:51→20:55)
[2016-04-13] MEDS: LACTOBACILLUS RHAMNOSUS GG 1 CAP CAPSULE PO SCH ×2 (08:51→20:59)
[2016-04-13] MEDS: HYDROcodone/ACETAMIN 10-325 MG TAB PO PRN ×3 (08:52→20:54)
[2016-04-13] MEDS: FUROSEMIDE 80 MG TABLET PO SCH ×2 (08:52→20:57)
[2016-04-13] MEDS: ISOSORBIDE DINITRATE 20 MG TABLET (ISORDIL) PO SCH ×2 (08:52→20:57)
--- NOTE | 2016-04-13 08:58 | NUR ---
NORCO MEDICATED WITH NORCO 10-325MG 1 TABLET FOR MIGRAINE HEADACHE 07/25. SAFETY AND FALL PRECAUTIONS ENFORCED WITH BED ALARM ARMED. ENCOURAGED TO CALL FOR ASSISTANCE. CALL LIGHT WITHIN REACH.
--- NOTE | 2016-04-13 10:00 | NUR ---
ROUNDS PT ASLEEP. NO SIGNS OF FACIAL GRIMACING FOR PAIN OR DISCOMFORT. NO DISTRESS NOTED. BED ALARM ARMED. CALL LIGHT WITHIN REACH. WILL MONITOR.
--- NOTE | 2016-04-13 10:01 | NUR ---
PAGED DR TAVARES FOR CRITICAL LABS. SPOKE WITH VIC
--- NOTE | 2016-04-13 10:14 | NUR ---
DR. CHAITANYA SHAY CALLED BACK AND INFORMED OF CRITICAL LAB FOR CREATININE 9.15. NO ORDERS GIVEN. MD WILL SEE PATIENT LATER WHEN HE COMES FOR HIS ROUNDS.
[2016-04-13 11:34] VITALS: BP 148/81; PULSE 94; RESP 19; TEMP 97.9; O2SAT 99
--- NOTE | 2016-04-13 12:00 | NUR ---
ROUNDS PT EATING LUNCH. NO SIGNIFICANT CHANGES NOTED. BLOOD SUGAR MONITOR 82. ENCOURAGED TO CONSUME HIS LUNCH. NO DISTRESS NOTED. ENCOURAGED TO CALL FOR ASSISTANCE. CALL LIGHT WITHIN REACH. WILL MONITOR.
--- NOTE | 2016-04-13 14:00 | NUR ---
ASLEEP PT ASLEEP. NO SIGNS OF FACIAL GRIMACING FOR PAIN OR DISCOMFORT. NO DISTRESS NOTED. WILL MONITOR.
--- NOTE | 2016-04-13 14:30 | NUR ---
NORCO MEDICATED PATIENT WITH NORCO FOR HEADACHE PAIN 05/25. ENCOURAGED TO CALL FOR ASSISTANCE. REMINDED ABOUT FALL AND SAFETY PRECAUTIONS. BED ALARM ARMED AND CALL LIGHT WITHIN REACH.
--- NOTE | 2016-04-13 16:30 | NUR ---
ROUNDS PT AWAKE SITTING UP ON EDGE OF BED. PT FEELS RESTLESS AND ANXIOUS. MEDICATED WITH ATIVAN 2MG BY MOUTH. NO COMPLAINTS OF PAIN OR DISCOMFORT AT THIS TIME. NO DISTRESS NOTED. RE-EDUCATED ABOUT SAFETY AND FALL PRECAUTIONS. ENCOURAGED TO CALL FOR ASSISTANCE. CALL LIGHT WITHIN REACH. WILL MONITOR.
--- NOTE | 2016-04-13 18:30 | NUR ---
CLOSING NOTES PT AWAKE SITTING UP IN BED. NO SIGNIFICANT CHANGES NOTED. WILL ENDORSE CARE TO INCOMING NURSE.
--- NOTE | 2016-04-13 19:30 | NUR ---
initial nursing notes: Patient is awake. Patient's IV access on the right AC intact. Encouraged patient to use call light when getting out of bed.
[2016-04-13 19:55] VITALS: BP 149/88; PULSE 97; RESP 15; TEMP 98.1
[2016-04-13] MEDS: SIMVASTATIN 10 MG TABLET PO SCH (20:58)
--- NOTE | 2016-04-13 21:30 | NUR ---
nursing rounds: Patient calmly resting in bed. Kept patient's bed alarm on.
--- NOTE | 2016-04-13 23:30 | NUR ---
nursing rounds: Patient is sleeping in bed. Kept siderails up X 3 for patient's safety.
[2016-04-14 00:51] VITALS: BP 147/88; PULSE 97; RESP 20; TEMP 98.2; O2SAT 95
--- NOTE | 2016-04-14 01:30 | NUR ---
nursing rounds: Patient ambulates to the bathroom with assist. Patient had no episode of fall and no injuries.
--- NOTE | 2016-04-14 03:30 | NUR ---
nursing rounds: Patient is asleep. Patient has no shortness of breath.
[2016-04-14 04:25] VITALS: BP 158/99; PULSE 97; RESP 18; TEMP 97.9; O2SAT 97
[2016-04-14] MEDS: LevALBUTEROL HCL 1.25 MG/0.5 ML *CONC.* VIAL.NEB (XOPENEX CONC.) INH SCH ×4 (04:33→19:51)
[2016-04-14] MEDS: PIPERACILLIN/TAZO 2.25G/DEX-IS 50 ML IV SCH ×4 (05:14→23:16)
[2016-04-14] MEDS: hydrALAZINE HCL 25 MG TABLET PO SCH ×3 (05:15→23:17)
--- NOTE | 2016-04-14 05:30 | NUR ---
nursing rounds: Patient calmly resting in bed. Patient has no respiratory distress.
[2016-04-14 07:36] LABS: CALCIUM 9.7 mg/dL (8.4-11.0); POTASSIUM 4.6 mmol/L (3.5-5.1)
--- NOTE | 2016-04-14 07:43 | NUR ---
closing nursing notes: Patient is awake, alert and oriented X 4. Patient is in no acute respiratory distress. 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 Provided nursing report to incoming morning shift nurse, YVES Merritt, at patient's bedside.
--- NOTE | 2016-04-14 07:57 | NUR ---
AM ROUNDS: No s/s of distress noted. Will continue to monitor.
[2016-04-14 07:58] LABS: CREATININE 11.56 mg/dL (0.55-1.30)
[2016-04-14 08:00] VITALS: BP 157/95; PULSE 103; RESP 20; TEMP 97.7; O2SAT 95
[2016-04-14] MEDS: ENALAPRIL MALEATE 10 MG TABLET (VASOTEC) PO SCH ×2 (08:08→20:31)
[2016-04-14] MEDS: NIFEDIPINE 90 MG TABLET.SA (PROCARDIA XL 90 MG) PO SCH (08:08)
[2016-04-14] MEDS: HYDROcodone/ACETAMIN 10-325 MG TAB PO PRN ×2 (08:11→20:25)
[2016-04-14] MEDS: LACTOBACILLUS RHAMNOSUS GG 1 CAP CAPSULE PO SCH (08:11)
[2016-04-14] MEDS: FUROSEMIDE 80 MG TABLET PO SCH ×2 (08:12→20:25)
[2016-04-14] MEDS: ISOSORBIDE DINITRATE 20 MG TABLET (ISORDIL) PO SCH ×2 (08:12→20:24)
[2016-04-14] MEDS: LORazepam 1 MG TABLET PO PRN ×2 (08:14→17:29)
--- NOTE | 2016-04-14 08:15 | NUR ---
HEMODIALYSIS: Hemodialysis started. Dialysis nurse at bedside.
--- NOTE | 2016-04-14 10:06 | NUR ---
PATIENT RESTING: Patient resting quietly. No acute distress noted. Vital signs within normal range.
--- NOTE | 2016-04-14 10:09 | NUR ---
PAGED: Dr. Gibbs paged for pain and anxiety.
[2016-04-14] MEDS ORDERED: HYDROmorphone 1 MG INJ. 1 MG/ML AMPUL IM PRN (10:15)
[2016-04-14 12:00] VITALS: BP 159/98; PULSE 102; RESP 20; TEMP 98; O2SAT 97
--- NOTE | 2016-04-14 12:18 | NUR ---
PATIENT RESTING: Patient resting quietly. No acute distress noted. Vital signs within normal range.
--- NOTE | 2016-04-14 14:12 | NUR ---
PATIENT RESTING: Patient resting quietly. No acute distress noted. Vital signs within normal range.
[2016-04-14 16:00] VITALS: BP 187/106; PULSE 104; RESP 21; TEMP 97.4; O2SAT 93
--- NOTE | 2016-04-14 16:10 | NUR ---
PATIENT RESTING: Patient resting quietly. No acute distress noted. Vital signs within normal range.
--- NOTE | 2016-04-14 18:04 | NUR ---
CLOSING NOTE: All needs met. No change in assessment. Will endorse to NOC shift nurse.
--- NOTE | 2016-04-14 19:45 | NUR ---
PM SHIFT ASSESSMENT Received patient sitting up in bed, aox4. Vitals stable. Denies any pain or discomfort at this time. No sob noted. IV line to right forearm intact and patent. no signs of infiltration noted. Left arm with av shunt. Patient ambulatory with assistance, assisted to bathroom earlier, steady gait noted. POC discussed, verbalized understanding, compliant. Educated on fall and safety measures. Oriented to use call light for nurse assistance. Call light within reach, will monitor.
[2016-04-14 20:03] VITALS: BP 176/100; PULSE 107; RESP 20; TEMP 98.1; O2SAT 94
[2016-04-14] MEDS: SIMVASTATIN 10 MG TABLET PO SCH (20:25)
--- NOTE | 2016-04-14 21:00 | NUR ---
RN ROUNDS Patient's due medications administered, blood sugar check 153. Refused sliding scale per insulin. Patient given Rupert 1 tab for pain management. Educated on fall and safety precautions. Patient verbalized understanding.
[2016-04-14] MEDS: ZOLPIDEM TARTRATE 5 MG TABLET PO PRN (21:27)
--- NOTE | 2016-04-14 21:34 | NUR ---
RN ROUNDS Patient sitting up in chair, denies any pain at this time, administered ambien 10 mg to help promote sleep, safety measures in place, call light within patients reach, will monitor.
--- NOTE | 2016-04-14 22:30 | NUR ---
RN ROUNDS Patient resting quietly, no distress noted, safety measures in place, call light within reach, will continue to monitor.
[2016-04-15] VITALS (7 sets, daily range): BP systolic 84–199; BP diastolic 50–120; PULSE 79–106; RESP 16–19; TEMP 96.3–98.1; O2SAT 92–99
--- NOTE | 2016-04-15 00:30 | NUR ---
RN ROUNDS/IV Patient's IV line accidently removed, new IV line placed on right forearm with 22 gauge catheter, secured with opsite and tape, patients due medications administered, vitals stable. Patient denies any pain at this time, call light remains within reach, will monitor.
[2016-04-15] MEDS: LevALBUTEROL HCL 1.25 MG/0.5 ML *CONC.* VIAL.NEB (XOPENEX CONC.) INH SCH ×3 (01:30→13:00)
--- NOTE | 2016-04-15 01:59 | NUR ---
RN ROUNDS Patient awake in bed, no sob noted, needs attended to, safety and fall precautions in place, bed alarm on, call light within reach, will continue to monitor.
--- NOTE | 2016-04-15 03:59 | NUR ---
RN ROUNDS Patient awake sitting up in bed, no sob noted, vitals stable, denies any pain or discomfort at this time, safety and fall precautions in place, call light within reach, will continue to monitor.
[2016-04-15] MEDS: hydrALAZINE HCL 25 MG TABLET PO SCH ×2 (06:05→14:51)
[2016-04-15] MEDS: LORazepam 1 MG TABLET PO PRN (06:05)
[2016-04-15] MEDS: PIPERACILLIN/TAZO 2.25G/DEX-IS 50 ML IV SCH ×2 (06:07→11:48)
--- NOTE | 2016-04-15 06:22 | NUR ---
RN ROUNDS Patient sitting up in bed, in no distress, due medications administered, blood sugar check this am 78, patient given 1 cranberry juice, requested to have Ativan po. Educated on fall and safety measures, compliant. Patient needs attended to. Call light within reach, will monitor until report given to am nurse.
--- NOTE | 2016-04-15 07:25 | NUR ---
RN Notes: Pt is ao x 4. Afebrile, vss stable, lung bilaterally diminished at the bases. On room air pt is sating 96%. Abdomen is soft, non-distended, has an AV shunt on the left forearm with palpable thrill and bruit. Has an iv access on the right forearm 22 gauge patent and dry. Bed within low position, call light within reach, safety measures maintained, informed pt to call for assistance.
--- NOTE | 2016-04-15 08:00 | NUR ---
Listening to the tv with no distress and no pain noted while eating breakfast at this time assisting with ADL's.
--- NOTE | 2016-04-15 09:09 | NUR ---
Pt complained of migraine headache and left arm AV shunt pain. Dilaudid 1 mg IV given. Made comfortable.
[2016-04-15] MEDS: FUROSEMIDE 80 MG TABLET PO SCH (09:10)
[2016-04-15] MEDS: ENALAPRIL MALEATE 10 MG TABLET (VASOTEC) PO SCH (09:10)
[2016-04-15] MEDS: ISOSORBIDE DINITRATE 20 MG TABLET (ISORDIL) PO SCH (09:11)
[2016-04-15] MEDS: NIFEDIPINE 90 MG TABLET.SA (PROCARDIA XL 90 MG) PO SCH (09:11)
--- NOTE | 2016-04-15 10:00 | NUR ---
Due medications given as ordered. Made pt comfortable, assisted with ADL's.
--- NOTE | 2016-04-15 11:54 | NUR ---
Latest BS 81 mg no coverage given, apple juice given to patient. Made pt comfortable. Zozyn IV given at this time.
[2016-04-15] MEDS: HYDROcodone/ACETAMIN 10-325 MG TAB PO PRN (12:02)
--- NOTE | 2016-04-15 12:03 | NUR ---
Pt complains of pain on the left arm. [place] 10/325mg po given assist on adl's.
--- NOTE | 2016-04-15 13:38 | NUR ---
Nutrition F/U Admitting Diagnosis PNA, CHF Past Medical History DM, HTN, ESRD, legally blind, chronic renal failure on HD, chronic anemia per MD notes Pertinent Medications Vancomycin HCl/NaCl IV, piperacillin/tazobactum, zocor, ativan, dilaudid lasix, D50% syringe, glucose PO, norco, vancomycin per pharmacy, SSI, MOM Current Diet Order CCHO, 2 gm Na (x5 days) Height (Feet) 5 feet Height (Inches) 8.00 inches Weight (Pounds) 145 pounds (admission); 142 lb, 64 kg (04/15/16) Weight (Calculated Kilograms) 65.009754 kilograms Patient Weight 65.771 kg Body Mass Index 22.04 kg/m2 (normal) [place]/Adjusted Body Weight IBW: 154 lb (70 kg), 94% of IBW Estimated Needs 9637-6615 kcal/day (25-30 kcal/kg IBW for maintenance) Grams of Protein per Day 84-98 g/day (1.2-1.4 g/kg IBW for ESRD on HD) Fluid Intake Goal Per MD for CHF and ESRD Pertinent Labs 04/13/16: WBC 4.3 L, Hgb 11.8 L (improving), Hct 35.7 L (improving) 04/14/16: BNP 4440 H, BG 95 WNL (improved), POC BG 153 H, Na 130 L, BUN 71 H, CRE 11.56 H (improving), eGFR 5 L Other Subjective Data Physical Assessment: Pt was awake and alert, sitting up in bed at time of visit. 142 lb (64 kg) recorded 04/15/16. Pt denies any significant weight changes. GI Integrity: Per EMR, active bowel sounds present. BM x2 today, normal stool. Pt reports BM up to x3/day while he has been here. Pt denies n/v. PO Intakes: Pt reports good appetite. PO records average 90% x14 meals. Integumentary: Kevin score 20, no skin issues noted. Plans/Procedures: Per MD notes, continue HD and control fluid balance. Per pt, possible DC today. Current diet is appropriate. Pt is tolerating and meeting optimal nutritional needs. Pt declined nutrition education at this time. Problem, Etiology, Signs/Symptoms (modified) Altered nutrition-related labs related to endocrine and renal dysfunctions as evidenced by BUN 71, CRE 11.56, eGFR 5, and POC BG 153. *updated lab values Expected Outcomes or Goals (modified) 1. Monitor PO intakes with goal of meeting at least 75% of estimated needs with acceptable tolerance 2. Labs trending within normal limits 3. Weight maintenance 4. Maintain skin integrity 5. Maintain normal GI function Dietitian Recommendations (modified) * Continue CCHO, 2 gm Na diet per MD order Follow Up Low Risk: F/U in 7 days Addendum: 04/15/16 at [address] CORRECTIONS: New BMI: 21.6 kg/m2 (normal) 04/15/16 customer experience intern provided nutrition education on 04/10/16. Please see interdisciplinary teaching record for details. SULMA reviewed/approved marketing research intern's note. NAOMI, SULMA
--- NOTE | 2016-04-15 14:00 | NUR ---
sitting on edge of the bed. stable. listening to tv. verbalized wants orange and apple juice
--- NOTE | 2016-04-15 15:00 | NUR ---
saline lock removed on the rt forearm. Transitional care documents given to the patient, explained each medication one by one with indications, dosage, frequency and what time to take. Return follow up with Dr Cárdenas tomorrow after dialysis. SDHS id band removed, awaiting for the daughter to come and picker packer the patient.
--- NOTE | 2016-04-15 15:24 | NUR ---
TRANSITIONAL CARE DOCUMENTS GIVEN TO THE PATIENT. AWAITING FOR THE DAUGHTER TO COME AND NETWORK DEVELOPER THE PATIENT.
--- NOTE | 2016-04-15 16:10 | NUR ---
patient left in stable condition. Lisa came to burr picker the patient. wheeled by the Portfolio Analyst to the lobby.
--- NOTE | 2016-04-21 10:47 | NUR ---
Discharge Follow Up Phone Call [employer]INO [employer]OT SUPERVISOR phoned patient, , and left voicemail messages on 04/16/16, 04/20/16 and 04/21/16 with offer of assistance and Social Service contact information. No further calls will be made.
[2016-05-13] MEDS ORDERED: INSULIN REGULAR, HUMAN 100 UNITS/ML, 10 ML VIAL (novoLIN R) SUBCUT PRN (11:15)
== END 2016-04-15 15:30 | disposition home or self-care (01) | DRG 291 ==
LOC: SED 14:43 → STU 18:09
PROVIDERS: ADMIT Family Medicine; ATTEND Family Medicine
PROC: 5A1D60Z (ICD-10-PCS; principal; 2015-04-10)
DX: I13.2 Hypertensive heart and chronic kidney disease with heart failure and with stage 5 chronic kidney disease, or end stage renal disease (principal); I50.33 Acute on chronic diastolic (congestive) heart failure; N18.6 End stage renal disease; J18.9 Pneumonia, unspecified organism; E11.22 Type 2 diabetes mellitus with diabetic chronic kidney disease; H54.8 Legal blindness, as defined in USA; D64.9 Anemia, unspecified; E11.319 Type 2 diabetes mellitus with unspecified diabetic retinopathy without macular edema; K21.9 Gastro-esophageal reflux disease without esophagitis; Z99.2 Dependence on renal dialysis; Z82.49 Family history of ischemic heart disease and other diseases of the circulatory system; Z83.3 Family history of diabetes mellitus
CPT/HCPCS: 36415; 71010; 80048; 80053; 82962; 83605; 83880; 85025; 87040-TC; 87081; 90935; 90937; 93005; 94640; 94760; 96365; 96368; 96375; 96376; 99285; J1170; J1815; J2060; J2270; J2405; J2543; J2930; J3370; J7030; J7050

== ENCOUNTER 2016-05-12 23:09 | Inpatient (IN) | payer OTHER, MEDICAID ==
[~2016-05-12] VITALS: Ht 175.3 cm; Wt 64.0 kg
[2016-05-12 23:09] VITALS: BP 144/86; PULSE 99; RESP 20; TEMP 98.7; O2SAT 98
--- NOTE | 2016-05-12 23:09 | NUR ---
Patient to ER bed 8 to gown for evaluation. Side rails up. Report given to YVES Chowdhury.
--- NOTE | 2016-05-12 23:10 | NUR ---
Patient AAO x4, sitting in bed, c/o cough and shortness of breath x 4 days, with chest wall pain 5/10 during inspiration and coughing. Patient has hx of ESRD, Dialysis and pnuemonia. Patient states he was hospitalized last month for pneumonia, patient states family "at home is sick and I took mucinex today and my coughing became worse." Md aware of patient state. Will continue to monitor.
--- NOTE | 2016-05-12 23:10 | NUR ---
ER at bedside examining patient.
[2016-05-12] MEDS ORDERED: IPRATROPIUM BROM 0.5 MG/2.5 ML VIAL.NEB (ATROVENT) IH ONE (23:30)
[2016-05-12] MEDS ORDERED: MAGNESIUM SULFATE 50 ML IV ONE (23:30)
[2016-05-12] MEDS ORDERED: ALBUTEROL SULFATE 0.083% 2.5 MG/3 ML VIAL.NEB IH ONE (23:30)
[2016-05-12] MEDS ORDERED: ASPIRIN 81 MG TAB.CHEW PO ONE (23:30)
--- NOTE | 2016-05-12 23:30 | NUR ---
# 20 gauge angiocath placed to Right forearm. Use of asceptic technique. Opsite placed over site. Blood return noted. Two patient identifiers used. Blood for lab drawn from site. Flushed with 10 cc of normal saline. No evidence of infiltration noted. Patient tolerated well.
--- NOTE | 2016-05-12 23:35 | NUR ---
MD placing patient on respiratory/droplet precautions.
[2016-05-12 23:51] LABS: EOSINOPHILS # (AUTO) 0.3 K/uL (0.0-0.4); LYMPHOCYTES # (AUTO) 0.5 K/uL (1.0-5.5)
[2016-05-12 23:59] LABS: CALCIUM 9.5 mg/dL (8.4-11.0); POTASSIUM 4.3 mmol/L (3.5-5.1)
[2016-05-13] VITALS (8 sets, daily range): BP systolic 128–157; BP diastolic 73–93; PULSE 83–99; RESP 18–22; TEMP 98.2–99.5; O2SAT 90–97
[2016-05-13] MEDS ORDERED: FUROSEMIDE 40 MG/4 ML VIAL IVP ONE
--- NOTE | 2016-05-13 | NUR ---
Patient refusing urine catheter placement. Patient is dialysis patient and states he produces "about 1 cup of urine a day." made aware.
[2016-05-13] MEDS ORDERED: cefTRIAXone 2 GM VIAL ONE (00:01)
[2016-05-13 00:03] LABS: PROTHROMBIN TIME 10.9 SECS (9.5-12.5)
[2016-05-13 00:04] LABS: ALBUMIN 3.7 g/dL (3.4-4.8); TOTAL BILIRUBIN 0.6 mg/dL (0.0-1.0); TOTAL PROTEIN, SERUM 9.7 g/dL (6.4-8.3)
[2016-05-13 00:11] LABS: BASOPHILS # (AUTO) 0.1 K/uL (0.0-0.2); BASOPHILS % (AUTO) 1.5 % (0.0-2.0); EOSINOPHILS % (AUTO) 3.7 % (0.0-4.0); HEMATOCRIT 36.8 % (36-54); HEMOGLOBIN 12.1 g/dL (14.0-18.0); LYMPHOCYTES % (AUTO) 7.3 % (20.5-51.5); MEAN CORPUSCULAR HEMOGLOBIN 27 pg (27-31); MEAN CORPUSCULAR HGB CONC 33 % (32-36); MEAN CORPUSCULAR VOLUME 82 fL (79.0-98.0); MONOCYTES # (AUTO) 0.4 K/uL (0.0-1.0); MONOCYTES % (AUTO) 6.2 % (1.7-9.3); NEUTROPHILS # (AUTO) 5.9 K/uL (1.8-7.7); NEUTROPHILS % (AUTO) 81.3 % (40.0-70.0); PLATELET COUNT (AUTO) 184 K/uL (130-430); RED CELL DISTRIBUTION WIDTH 14.9 % (9.0-15.0); WHITE BLOOD COUNT (AUTO) 7.3 K/uL (4.8-10.8)
[2016-05-13 00:23] LABS: CREATININE 9.69 mg/dL (0.55-1.30)
--- NOTE | 2016-05-13 00:30 | NUR ---
Patient stating he is feeling anxious and needs "something for my nerves I get this way during dialysis, I just feel very anxious."
[2016-05-13] MEDS ORDERED: LORazepam 2 MG/ML VIAL IVP ONE (00:45)
--- NOTE | 2016-05-13 00:45 | NUR ---
Patient ambulated to bedside commode.
[2016-05-13] MEDS ORDERED: LORazepam 2 MG/ML VIAL (FOR ER USE) ONE (00:57)
--- NOTE | 2016-05-13 01:50 | NUR ---
ADMISSION NOTE Received patient from ER via gurney. Patient admitted with diagnosis of PNA. Patient is awake, alert, oriented X [4. Patient oriented to hospital room, call light, toileting, pain management and safety-teach back done. Patient informed that Stella will be his nurse and that their room number is 115A. Personal belongings checked and Belongings List documented. Call light within reach.
--- NOTE | 2016-05-13 01:50 | NUR ---
Patient will be admitted to care of Dr. Gibbs. Admitted to Tele unit. Will go to room 115A. Belongings list completed. Summary report printed. Report given to YVES Romano.
--- NOTE | 2016-05-13 01:50 | NUR ---
Transfer to TELE via ACLS protocol. Licensed nurse present. IV present no signs or symptoms of infiltration.
--- NOTE | 2016-05-13 01:58 | NUR ---
CONSULTATION PAGED REASON FOR CONSULTATION:DIALYSIS WAS CONSULT CALLED?Y PERSON WHO WAS NOTIFIED:LEIGHA CONSULTING PHYSICIAN:HARRY DIXON [employer] SPECIALTY:[employer] PHONE NUMBER:[phone]
--- NOTE | 2016-05-13 02:20 | NUR ---
PAGED DR. HARRIS SHAY PAGED, PT COMPLAINING OF SEVERE PAIN "FROM ALL THE COUGHING". PT ASKED FOR HIS SLEEPING PILL. WILL ALSO ASK MD FOR ACCU CHECK ORDER.
--- NOTE | 2016-05-13 02:40 | NUR ---
RETURNED CALL/NEW ORDERS ORDERED NORCO 10-325MG TAB PO Q4H PRN FOR SEVERE PAIN, AMBIEN 10MG PO ONE TIME DOSE, ATIVAN 2MG PO BID. AWARE PT'S BP 157/93 HR 95 NO NEW ORDERS FOR BP, STATED "ITS OKAY". Addendum: 05/13/16 at 0251 by Magali Lynne RN STATED PT IS NOT DIABETIC AND DOES NOT NEED INSULIN COVERAGE
[2016-05-13] MEDS ORDERED: LORazepam 1 MG TABLET PO ONE (03:00)
--- NOTE | 2016-05-13 03:04 | NUR ---
NO SECOND LACTIC ACID PER KETAN SHAY VERIFIED WITH KETAN PARRA RN. FIRST LACTIC ACID NORMAL, NO SECOND LACTIC ACID NEEDED. Addendum: 05/13/16 at 0306 by Magali Lynne RN NO IV FLUIDS, DIALYSIS PATIENT
[2016-05-13] MEDS: ZOLPIDEM TARTRATE 5 MG TABLET PO PRN (03:16)
[2016-05-13] MEDS: HYDROcodone/ACETAMIN 10-325 MG TAB PO PRN ×2 (03:16→09:13)
--- NOTE | 2016-05-13 03:58 | NUR ---
ROUNDS PATIENT SLEEPING. VISIBLE RISE AND FALL OF CHEST NOTED. NO S/S OF ACUTE DISTRESS NOTED. BED IN LOWEST POSITION. CALL LIGHT WITHIN REACH. WILL CONTINUE TO MONITOR.
--- NOTE | 2016-05-13 05:30 | NUR ---
ROUNDS PATIENT SLEEPING, VISIBLE RISE AND FALL OF CHEST NOTED. NO SIGNS OR SYMPTOMS OF DISTRESS. WILL CONTINUE TO MONITOR.
--- NOTE | 2016-05-13 06:48 | NUR ---
BLOOD SUGAR BLOOD SUGAR WAS 92.
--- NOTE | 2016-05-13 06:48 | NUR ---
CLOSING NOTES PATIENT RESTING COMFORTABLY. NO S/S OF DISTRESS NOTED. BED IN LOWEST POSITION, CALL LIGHT WITHIN REACH. WILL ENDORSE CARE TO DAY SHIFT.
--- NOTE | 2016-05-13 07:30 | NUR ---
RN OPENING NOTE PT RESTING IN BED. VS STABLE AND AIRBORNE ISOLATION PRECAUTIONS ARE IN PLACE. PT A/O X 4. PT STATED HE IS COUGHING LESS THAN LAST NIGHT BUT HAS PAIN IN HIS CHEST DUE TO HIS COUGHING. BED IN LOWEST POSITION AND CALL LIGHT WITHIN REACH
--- NOTE | 2016-05-13 07:43 | NUR ---
Nutrition Update Kevin Scale 18 noted. Pt admitted for pneumonia. Diet: renal standard BMI: 21.3 kg/m2 RD to follow per nutrition care standards.
[2016-05-13] MEDS: LORazepam 1 MG TABLET PO SCH ×2 (09:12→22:29)
--- NOTE | 2016-05-13 10:00 | NUR ---
RN ROUNDS PT RESTING IN BED, LISTENING TO THE TV. BED IN LOWEST POSITION AND PT EDUCATED ON USE OF CALL LIGHT/MADE AWARE OF BRAILLE SYMBOLS.
--- NOTE | 2016-05-13 10:58 | NUR ---
Dr Sai galindo Saw patient and stated hge will review the medRecc
[2016-05-13] MEDS ORDERED: ZOLPIDEM TARTRATE 5 MG TABLET PO SCH (11:00)
[2016-05-13] MEDS ORDERED: MILK OF MAGNESIA 30 ML UDC PO PRN ×2 (11:00→11:30)
[2016-05-13] MEDS ORDERED: NITROGLYCERIN 0.4 MG TAB.SUBL SL PRN (11:00)
[2016-05-13] MEDS: LevALBUTEROL HCL 1.25 MG/0.5 ML *CONC.* VIAL.NEB (XOPENEX CONC.) INH SCH ×6 (11:05→21:26)
[2016-05-13] MEDS ORDERED: LevALBUTEROL HCL 1.25 MG/0.5 ML *CONC.* VIAL.NEB (XOPENEX CONC.) INH PRN (11:15)
--- NOTE | 2016-05-13 11:16 | NUR ---
ID consult Order received for a consult with Dr Greene for PNA. Call was placed to [phone], spoke with Jacqueline at his office. Will follow up as needed.
[2016-05-13] MEDS ORDERED: INSULIN REGULAR, HUMAN 100 UNITS/ML, 10 ML VIAL (novoLIN R) SUBCUT PRN (11:30)
--- NOTE | 2016-05-13 12:00 | NUR ---
RN ROUNDS PT SITTING UP IN BED. BED IN LOWEST POSITION AND PT AWARE OF BRAILLE SYMBOLS PIANO AND ORGAN REFINISHER LIGHT
[2016-05-13] MEDS: PIPERACILLIN/TAZO 2.25G/DEX-IS 50 ML IV SCH ×2 (12:34→18:37)
[2016-05-13] MEDS ORDERED: VANCOMYCIN HCL 1,000 MG in NS 250 ML IV SCH (13:00)
--- NOTE | 2016-05-13 14:00 | NUR ---
RN ROUNDS PT RESTING IN BED. BED IN LOWEST POSITION AND PT AWARE OF BRAILLE SYMBOLS CONTACT CENTRE SUPERVISOR LIGHT
--- NOTE | 2016-05-13 16:00 | NUR ---
RN ROUNDS PT RESTING IN BED, DAUGHTER AT BEDSIDE. DAUGHTER IS NOT WEARING A FACE MASK, TB/AIRBORNE EDUCATION PROVIDED. BED IN LOWEST POSITION AND PT AWARE OF BRAILLE SYMBOLS SWATCH CLERK LIGHT
[2016-05-13] MEDS: hydrALAZINE HCL 25 MG TABLET PO SCH ×2 (16:43→21:00)
--- NOTE | 2016-05-13 17:55 | NUR ---
RN ROUNDS PT SITTING UP IN BED, EATING DINNER. BED IN LOWEST POSITION AND PT AWARE OF BRAILLE SYMBOLS THROUGH OPERATOR LIGHT
[2016-05-13] MEDS ORDERED: LOVASTATIN 20 MG TABLET PO SCH (18:00)
--- NOTE | 2016-05-13 18:04 | NUR ---
Follow up on dialysis. Asked private household worker to follow up on HD since it has yet to be done. She stated she will call them to follow up.
--- NOTE | 2016-05-13 18:17 | NUR ---
RN CLOSING NOTES PT SAYS HE IS COMFORTABLE AND NOTED HIS COUGH HAS REDUCED SIGNIFICANTLY THROUGHOUT THE DAY. DIALYSIS WAS NOT PERFORMED TODAY SCHEDULED, FOLLOW-UP RESULTS PENDING. BED IN LOWEST POSITION AND CALL LIGHT IS WITHIN REACH.
[2016-05-13] MEDS: SIMVASTATIN 10 MG TABLET PO SCH (18:36)
[2016-05-13] MEDS: AZITHROMYCIN 500 MG in NS 250 ML IV SCH (19:32)
--- NOTE | 2016-05-13 19:52 | NUR ---
PM ASSESSMENT PT. A/OX4, PT. IS LEGALLY BLIND, VITAL SIGNS STABLE, NO DISTRESS NOTED, DENIES PAIN, NOTED WITH PRODUCTIVE COUGH WITH LIGHT BROWN SPUTUM, NOTED WITH FISTULA TO LEFT FOREARM, NOTED WITH BRUIT AND THRILL PALPABLE. UPDATED WITH PLAN OF CARE, ENCOURAGED PT. TO USE CALL LIGHT FOR ASSISTANCE, CALL LIGHT WITHIN REACH, ISOLATION PRECAUTIONS MAINTAINED FOR R/O TB, WILL CONTINUE TO MONITOR.
[2016-05-13] MEDS: LABETALOL HCL 100 MG TABLET PO SCH (21:00)
[2016-05-13] MEDS: ENALAPRIL MALEATE 10 MG TABLET (VASOTEC) PO SCH (21:00)
[2016-05-13] MEDS: ISOSORBIDE DINITRATE 20 MG TABLET (ISORDIL) PO SCH (21:00)
--- NOTE | 2016-05-13 21:18 | NUR ---
DIALYSIS NURSE AT BEDSIDE
--- NOTE | 2016-05-13 21:30 | NUR ---
ACCUCHECK BLOOD SUGAR=95, NO COVERAGE REQUIRED, PT. ATE HALF A TURKEY SANDWHICH AND 1 CRANBERRY JUICE AFTER.
--- NOTE | 2016-05-13 22:50 | NUR ---
DIALYSIS NURSE STARTED HEMODIALYSIS @ 2250
[2016-05-14] VITALS (7 sets, daily range): BP systolic 140–178; BP diastolic 79–109; PULSE 79–96; RESP 16–18; TEMP 97.4–98.6; O2SAT 95–99
--- NOTE | 2016-05-14 00:26 | NUR ---
RN ROUNDS PT. CURRENTLY RECEIVING DIALYSIS, NO DISTRESS NOTED, DENIES PAIN, WILL CONTINUE TO MONITOR.
[2016-05-14] MEDS: LevALBUTEROL HCL 1.25 MG/0.5 ML *CONC.* VIAL.NEB (XOPENEX CONC.) INH SCH ×3 (01:00→19:00)
--- NOTE | 2016-05-14 01:50 | NUR ---
END OF DIALYSIS PT. DONE WITH DIALYSIS, OUTPUT IS 3L, BLOOD PRESSURE IS 159/79, WILL CONTINUE TO MONITOR.
[2016-05-14] MEDS: PIPERACILLIN/TAZO 2.25G/DEX-IS 50 ML IV SCH ×5 (01:55→23:09)
[2016-05-14] MEDS: ZOLPIDEM TARTRATE 5 MG TABLET PO PRN (02:06)
--- NOTE | 2016-05-14 03:47 | NUR ---
RN ROUNDS PT. CURRENTLY RECEIVING DIALYSIS, NO DISTRESS NOTED, DENIES PAIN, WILL CONTINUE TO MONITOR.
--- NOTE | 2016-05-14 06:27 | NUR ---
CLOSING NOTES PT. RESTING QUIETLY, VITAL SIGNS STABLE, NO DISTRESS NOTED, DENIES PAIN. IV ACCESS PATENT AND BENIGN. ALL ANTICIPATED NEEDS MET.
--- NOTE | 2016-05-14 07:40 | NUR ---
Initial note Received report at bedside. Pt is resting , no distress at this time. Pt has call light and personal items in reach.Blood pressure elevated, 162/97. Will administer medications as ordered. Remind patient to call when he needs to get up so we can assist him. He verbalized understanding.
--- NOTE | 2016-05-14 09:30 | NUR ---
ROUNDS PT SITTING UP IN BED AND STATES HE IS COMFORTABLE. DUE MEDS GIVEN, TOLERATED WELL. EDUCATED PT ON CALLING FOR ASSISTANCE TO AMBULATE FOR SAFETY
[2016-05-14] MEDS: LABETALOL HCL 100 MG TABLET PO SCH ×2 (09:45→21:54)
[2016-05-14] MEDS: ISOSORBIDE DINITRATE 20 MG TABLET (ISORDIL) PO SCH ×2 (09:46→21:55)
[2016-05-14] MEDS: LORazepam 1 MG TABLET PO SCH ×2 (09:46→21:50)
[2016-05-14] MEDS: FUROSEMIDE 80 MG TABLET PO SCH (09:47)
[2016-05-14] MEDS: ENALAPRIL MALEATE 10 MG TABLET (VASOTEC) PO SCH ×2 (10:08→21:48)
[2016-05-14] MEDS: HYDROcodone/ACETAMIN 10-325 MG TAB PO PRN (10:08)
[2016-05-14] MEDS: hydrALAZINE HCL 25 MG TABLET PO SCH ×3 (10:09→21:54)
--- NOTE | 2016-05-14 10:39 | NUR ---
Social Service Note: Pt referred to social service by nursing during admission assessment. CLINICAL NURSING INTERN met with pt at bedside; pt states that he does not know why a referral to social media specialist was made. CLINICAL NURSING INTERN completed discharge plan assessment; pt is asking for home oxygen; CLINICAL NURSING INTERN explained that the doctor would need to order the oxygen for the pt and pt would need to meet the qualifying numbers. Pt has no other concerns needs at this time. CLINICAL NURSING INTERN will remain available for support and will follow up as needs arise.
--- NOTE | 2016-05-14 14:00 | NUR ---
DR TAVARES ROUNDS HD ORDERS NOTED AND HANDED TO HOUSE SUPERVISER
--- NOTE | 2016-05-14 16:00 | NUR ---
ROUND PT SLEEPING IN BED AND APPEARS COMFORTABLE. BED IN LOWEST POSITION AND CALL LIGHT WITHIN REACH
[2016-05-14] MEDS: SIMVASTATIN 10 MG TABLET PO SCH (18:54)
[2016-05-14] MEDS: AZITHROMYCIN 500 MG in NS 250 ML IV SCH (18:55)
--- NOTE | 2016-05-14 19:15 | NUR ---
initial nursing notes: Patient is awake. Patient is in respiratory isolation to rule out TB. Patient has IV antibiotics infusing on the right forearm IV access. Patient has an AV shunt on the left forearm.
--- NOTE | 2016-05-14 19:47 | NUR ---
REPORT ENDORSED AT BEDSIDE. SPUTUM CULTURE COLLECTED AND ENDORSED TO HAVE ANOTHER CULTURE COLLECTED.
--- NOTE | 2016-05-14 20:04 | NUR ---
DR CHAITANYA STEVENSON HD ORDERS NOTED AND HANDED TO HOUSE SUPERVISER Addendum: 05/14/16 at 2004 by Radha Tate RN Rod STEVENSON
--- NOTE | 2016-05-14 21:15 | NUR ---
nursing rounds: Patient has visual impairment. Patient is able to ambulate to the bathroom with assistance.
--- NOTE | 2016-05-14 23:15 | NUR ---
nursing rounds: Patient is getting ready to go to sleep. Patient denies of having pain.
[2016-05-15] MEDS: LevALBUTEROL HCL 1.25 MG/0.5 ML *CONC.* VIAL.NEB (XOPENEX CONC.) INH SCH ×5 (01:00→19:00)
--- NOTE | 2016-05-15 01:15 | NUR ---
nursing rounds: Patient is asleep. Patient has no shortness of breath.
--- NOTE | 2016-05-15 03:15 | NUR ---
nursing rounds: Patient is sleeping in bed. Patient has no respiratory distress.
[2016-05-15 03:43] VITALS: BP 140/83; PULSE 85; RESP 18; TEMP 97.9; O2SAT 93
--- NOTE | 2016-05-15 05:15 | NUR ---
nursing rounds: Patient calmly resting in bed. Call light within patient's reach.
[2016-05-15] MEDS: PIPERACILLIN/TAZO 2.25G/DEX-IS 50 ML IV SCH ×3 (05:59→18:00)
[2016-05-15 07:04] LABS: BASOPHILS % (AUTO) 0.7 % (0.0-2.0); EOSINOPHILS # (AUTO) 0.4 K/uL (0.0-0.4); HEMATOCRIT 30.8 % (36-54); HEMOGLOBIN 10.4 g/dL (14.0-18.0); LYMPHOCYTES # (AUTO) 0.4 K/uL (1.0-5.5); LYMPHOCYTES % (AUTO) 9.8 % (20.5-51.5); MEAN CORPUSCULAR HEMOGLOBIN 28 pg (27-31); MEAN CORPUSCULAR HGB CONC 34 % (32-36); MEAN CORPUSCULAR VOLUME 83 fL (79.0-98.0); MONOCYTES # (AUTO) 0.5 K/uL (0.0-1.0); MONOCYTES % (AUTO) 12.1 % (1.7-9.3); NEUTROPHILS # (AUTO) 3.1 K/uL (1.8-7.7); NEUTROPHILS % (AUTO) 68.4 % (40.0-70.0); PLATELET COUNT (AUTO) 165 K/uL (130-430); RED BLOOD CELL COUNT(AUTO) 3.72 MIL/uL (4.2-6.2); RED CELL DISTRIBUTION WIDTH 15.5 % (9.0-15.0); WHITE BLOOD COUNT (AUTO) 4.4 K/uL (4.8-10.8)
[2016-05-15 07:09] LABS: POTASSIUM 4.4 mmol/L (3.5-5.1)
[2016-05-15 07:11] LABS: CREATININE 9.88 mg/dL (0.55-1.30)
--- NOTE | 2016-05-15 07:28 | NUR ---
closing nursing notes: Patient is awake, alert and oriented X 4. Patient is in no acute respiratory distress. No episodes of fall and no injuries throughout the night assistant. Provided nursing report to incoming morning shift nurse, YVES Cali, at patient's bedside.
[2016-05-15 08:00] VITALS: BP 170/98; PULSE 98; RESP 20; TEMP 98.2; O2SAT 98
--- NOTE | 2016-05-15 08:00 | NUR ---
OPENING NOTE PATIENT IS AWAKE, ALERT AND ORIENTED. LEGALLY BLIND ALL OTHER SENSES INTACT. PATIENT DENIES PAIN, LUNGS HAVE SLIGHT RHONCHI. PERSISTENT PRODUCTIVE COUGH. RESPIRATORY PRECAUTIONS IN PLACE.
[2016-05-15] MEDS: LORazepam 1 MG TABLET PO SCH ×2 (09:15→21:38)
--- NOTE | 2016-05-15 09:27 | NUR ---
BP MEDS HELD FOR DIALYSIS. WILL REASSESS PATIENT VITALS FREQUENTLY DURING DIALYSIS. GRAB SETTER AT BEDSIDE.
[2016-05-15 12:50] VITALS: BP 166/97; PULSE 87; RESP 17; TEMP 98; O2SAT 98
--- NOTE | 2016-05-15 13:50 | NUR ---
DIALYSIS COMPLETE. PATIENT IS RESTING COMFORTABLY EATING LUNCH. IV ABX HUNG LATE PATIENT WAS RECEIVING DIALYSIS WHEN IT WAS DUE. DENIES ANY PAIN AT THIS TIME. BREATHING TX PER RESPIRATOR.
[2016-05-15] MEDS: ISOSORBIDE DINITRATE 20 MG TABLET (ISORDIL) PO SCH ×2 (14:38→21:37)
[2016-05-15] MEDS: ENALAPRIL MALEATE 10 MG TABLET (VASOTEC) PO SCH ×2 (14:39→21:38)
[2016-05-15] MEDS: hydrALAZINE HCL 25 MG TABLET PO SCH ×3 (14:39→21:37)
[2016-05-15] MEDS: LABETALOL HCL 100 MG TABLET PO SCH ×2 (14:40→21:36)
[2016-05-15] MEDS: FUROSEMIDE 80 MG TABLET PO SCH (14:40)
[2016-05-15] MEDS: HYDROcodone/ACETAMIN 10-325 MG TAB PO PRN (14:44)
--- NOTE | 2016-05-15 15:00 | NUR ---
3l of fluid removed in dialysis
[2016-05-15 16:12] VITALS: BP 160/89; PULSE 82; RESP 18; TEMP 98.1; O2SAT 97
--- NOTE | 2016-05-15 16:19 | NUR ---
PATIENT REPORTS NO PAIN AFTER NORCO ADMINISTRATION. GIVEN PITCHER OF ICE CHIPS
[2016-05-15] MEDS: AZITHROMYCIN 500 MG in NS 250 ML IV SCH (18:00)
[2016-05-15] MEDS: SIMVASTATIN 10 MG TABLET PO SCH (18:00)
[2016-05-15 20:21] VITALS: BP 147/85; PULSE 84; RESP 20; TEMP 97.6; O2SAT 94
--- NOTE | 2016-05-15 20:45 | NUR ---
Patient awake alert blind in both eyes , safety measures implemented , family with patient this hour / .
[2016-05-15] MEDS: ZOLPIDEM TARTRATE 5 MG TABLET PO PRN (21:37)
--- NOTE | 2016-05-15 23:05 | NUR ---
LORAZEPAM 2 MG PO given for anxiety & helpful / .
--- NOTE | 2016-05-15 23:06 | NUR ---
AMBIEN 10 MG PO given for sleep aide , patient request / .
--- NOTE | 2016-05-15 23:08 | NUR ---
BSG 89 mg dl sand witch & juice po given patient awake alert .
[2016-05-16 00:44] VITALS: BP 126/82; PULSE 75; RESP 20; TEMP 98.3; O2SAT 97
[2016-05-16] MEDS: PIPERACILLIN/TAZO 2.25G/DEX-IS 50 ML IV SCH ×4 (00:51→17:31)
[2016-05-16] MEDS: LevALBUTEROL HCL 1.25 MG/0.5 ML *CONC.* VIAL.NEB (XOPENEX CONC.) INH SCH ×4 (01:00→20:20)
--- NOTE | 2016-05-16 01:14 | NUR ---
ZOSYN 2.25 MG IVPB administer as ordered no allergic reaction noted skin rash free dry also warm / .
--- NOTE | 2016-05-16 05:15 | NUR ---
Hourly Rounding patient awake out of bed to BSC , fall measures implemented assist patient back to bed medium BM noted / .
--- NOTE | 2016-05-16 06:18 | NUR ---
SPUTUM collected & sent to Lab this hour / .
[2016-05-16 08:00] VITALS: BP 147/94; PULSE 82; RESP 20; TEMP 97.8; O2SAT 98
--- NOTE | 2016-05-16 08:00 | NUR ---
OPENING NOTE PATIENT IS AWAKE, EATING BREAKFAST. DENIES ANY PAIN AT THIS TIME. VITALS OBTAINED. WNL FOR PATIENT. TODAY'S EKG SHOWING ST SEGMENT DEPRESSION. PT CONTINUES TO HAVE PERSISTENT COUGH
[2016-05-16] MEDS: FUROSEMIDE 80 MG TABLET PO SCH (09:39)
[2016-05-16] MEDS: LORazepam 1 MG TABLET PO SCH ×2 (09:39→22:21)
[2016-05-16] MEDS: ISOSORBIDE DINITRATE 20 MG TABLET (ISORDIL) PO SCH ×2 (09:39→22:22)
[2016-05-16] MEDS: hydrALAZINE HCL 25 MG TABLET PO SCH ×3 (09:40→22:20)
[2016-05-16] MEDS: LABETALOL HCL 100 MG TABLET PO SCH ×2 (09:40→22:22)
[2016-05-16] MEDS: ENALAPRIL MALEATE 10 MG TABLET (VASOTEC) PO SCH ×2 (09:41→22:20)
--- NOTE | 2016-05-16 10:00 | NUR ---
PATIENT MEDICATED PER ORDERS, ATE MOST OF BREAKFAST, TRAY REMOVED. DENIES ANY PAIN
--- NOTE | 2016-05-16 12:00 | NUR ---
PATIENT AMBULATED TO RESTROOM INDEPENDENTLY
[2016-05-16 12:06] VITALS: BP 146/87; PULSE 81; RESP 17; TEMP 98.2; O2SAT 94
[2016-05-16] MEDS: HYDROcodone/ACETAMIN 10-325 MG TAB PO PRN (14:57)
--- NOTE | 2016-05-16 15:01 | NUR ---
patient medicated for self described migraine. requesting ativan more often than ordered as he has anxiety due to isolation.
[2016-05-16 16:45] VITALS: BP 135/78; PULSE 88; RESP 18; TEMP 98.7; O2SAT 94
--- NOTE | 2016-05-16 16:47 | NUR ---
patient is sleeping in bed, resting comfortably no signs of distress
[2016-05-16] MEDS: AZITHROMYCIN 500 MG in NS 250 ML IV SCH (17:30)
[2016-05-16] MEDS: SIMVASTATIN 10 MG TABLET PO SCH (18:40)
[2016-05-16 20:51] VITALS: BP 139/78; PULSE 82; RESP 20; TEMP 97.5; O2SAT 93
--- NOTE | 2016-05-16 21:45 | NUR ---
Patient awake alert family @ the bedside , patient sitting up in bed / .
[2016-05-16] MEDS: ZOLPIDEM TARTRATE 5 MG TABLET PO PRN (22:23)
--- NOTE | 2016-05-16 23:15 | NUR ---
BSG 101 mg dl no insulin reaction noted skin dry also warm .
--- NOTE | 2016-05-17 | NUR ---
LORAZEPAM 2 MG PO given for agitation & helpful .
[2016-05-17] MEDS: PIPERACILLIN/TAZO 2.25G/DEX-IS 50 ML IV SCH ×4 (00:59→18:04)
[2016-05-17 01:01] VITALS: BP 134/76; PULSE 77; RESP 20; TEMP 98; O2SAT 99
[2016-05-17] MEDS: LevALBUTEROL HCL 1.25 MG/0.5 ML *CONC.* VIAL.NEB (XOPENEX CONC.) INH SCH ×4 (01:20→19:40)
--- NOTE | 2016-05-17 04:22 | NUR ---
Hourly Rounding patient resting this hour no complaints made / .
--- NOTE | 2016-05-17 04:25 | NUR ---
ZOSYN 2.25 GM IVPB administer as ordered no allergic reaction noted / .
--- NOTE | 2016-05-17 04:25 | NUR ---
AMBIEN 10 MG PO given for sleep aide & helpful .
--- NOTE | 2016-05-17 04:31 | NUR ---
HEMODIALYSIS orders given to House soup , for AM procedure .
[2016-05-17 07:03] LABS: EOSINOPHILS # (AUTO) 0.4 K/uL (0.0-0.4); EOSINOPHILS % (AUTO) 9.4 % (0.0-4.0); HEMATOCRIT 30.3 % (36-54); HEMOGLOBIN 10.2 g/dL (14.0-18.0); LYMPHOCYTES # (AUTO) 0.5 K/uL (1.0-5.5); LYMPHOCYTES % (AUTO) 11.9 % (20.5-51.5); MEAN CORPUSCULAR HEMOGLOBIN 28 pg (27-31); MEAN CORPUSCULAR HGB CONC 34 % (32-36); MEAN CORPUSCULAR VOLUME 83 fL (79.0-98.0); MONOCYTES # (AUTO) 0.5 K/uL (0.0-1.0); MONOCYTES % (AUTO) 12.2 % (1.7-9.3); NEUTROPHILS # (AUTO) 2.8 K/uL (1.8-7.7); NEUTROPHILS % (AUTO) 65.5 % (40.0-70.0); PLATELET COUNT (AUTO) 179 K/uL (130-430); RED BLOOD CELL COUNT(AUTO) 3.68 MIL/uL (4.2-6.2); RED CELL DISTRIBUTION WIDTH 15.5 % (9.0-15.0); WHITE BLOOD COUNT (AUTO) 4.3 K/uL (4.8-10.8)
[2016-05-17 07:25] LABS: CALCIUM 9.3 mg/dL (8.4-11.0); POTASSIUM 4.5 mmol/L (3.5-5.1)
[2016-05-17 07:45] VITALS: BP 134/76; PULSE 90
[2016-05-17 07:46] LABS: CREATININE 10.61 mg/dL (0.55-1.30)
--- NOTE | 2016-05-17 08:00 | NUR ---
OPENING NOTE PATIENT IS AWAKE, EATING BREAKFAST. DENIES ANY PAIN AT THIS TIME.
--- NOTE | 2016-05-17 09:00 | NUR ---
HOOKMAN AT BEDSIDE. PATIENT MEDICATED W ATIVAN FOR ANXIETY. OTHER MEDICATIONS HELD.
[2016-05-17] MEDS: LORazepam 1 MG TABLET PO SCH ×2 (09:46→21:23)
[2016-05-17] MEDS: HYDROcodone/ACETAMIN 10-325 MG TAB PO PRN (10:26)
--- NOTE | 2016-05-17 11:47 | NUR ---
patient remains restless and anxious.
[2016-05-17 12:05] VITALS: BP 191/109; PULSE 94; RESP 20; TEMP 98.5; O2SAT 98
[2016-05-17] MEDS: FUROSEMIDE 80 MG TABLET PO SCH (13:12)
[2016-05-17] MEDS: ISOSORBIDE DINITRATE 20 MG TABLET (ISORDIL) PO SCH ×2 (13:12→21:22)
[2016-05-17] MEDS: hydrALAZINE HCL 25 MG TABLET PO SCH ×3 (13:12→21:21)
[2016-05-17] MEDS: LABETALOL HCL 100 MG TABLET PO SCH ×2 (13:13→21:22)
[2016-05-17] MEDS: ENALAPRIL MALEATE 10 MG TABLET (VASOTEC) PO SCH ×2 (13:15→21:24)
--- NOTE | 2016-05-17 14:06 | NUR ---
DR ROMAN IN TO SEE PATIENT. DIALYSIS COMPLETE. 2.7L REMOVED. PATIENT REMAINS ANXIOUS. ATE 100% OF LUNCH BUT STATES HE THINKS HIS BLOOD SUGAR IS LOW.
--- NOTE | 2016-05-17 14:24 | NUR ---
patient reports dixxiness, bp is 127/72 and bg is 157. reminded patient he just had dialysis, all his bp meds and norco and ativan and his dizziness was likely secondary to all of that. patient agreed and laid back down in bed agreeing to rest for a while.
[2016-05-17 16:12] VITALS: BP 167/94; PULSE 81; RESP 16; TEMP 97.6; O2SAT 99
[2016-05-17] MEDS: SIMVASTATIN 10 MG TABLET PO SCH (18:03)
[2016-05-17] MEDS: AZITHROMYCIN 500 MG in NS 250 ML IV SCH (18:04)
[2016-05-17 20:14] VITALS: BP 137/85; PULSE 85; RESP 18; TEMP 97.5; O2SAT 97
--- NOTE | 2016-05-17 20:25 | NUR ---
Patient awake alert Vision problem noted ( blind ) fall measures precautions implemented patient verbally indicative / .
[2016-05-17] MEDS: ZOLPIDEM TARTRATE 5 MG TABLET PO PRN (21:23)
--- NOTE | 2016-05-17 23:25 | NUR ---
LORAZEPAM 2 MG PO administer for agitation & helpful , patient awake also alert .
[2016-05-17 23:42] VITALS: BP 136/93; PULSE 86; RESP 18; TEMP 97.5; O2SAT 93
--- NOTE | 2016-05-18 00:04 | NUR ---
AMBIEN 10 MG PO given for sleep aide request from patient / .
--- NOTE | 2016-05-18 00:05 | NUR ---
ZOSYN 2.25 GM IVPB administer as ordered no allergic reaction noted skin dry warm rash free / .
[2016-05-18] MEDS: LevALBUTEROL HCL 1.25 MG/0.5 ML *CONC.* VIAL.NEB (XOPENEX CONC.) INH SCH ×6 (00:30→13:00)
[2016-05-18] MEDS: PIPERACILLIN/TAZO 2.25G/DEX-IS 50 ML IV SCH ×2 (01:30→06:38)
--- NOTE | 2016-05-18 04:06 | NUR ---
Hourly Rounding patient awake assist for position change verbally indicative , on room air 02 SAT 97 % chest movement symmetrical unlabored .
[2016-05-18 04:15] VITALS: BP 150/94; PULSE 82; RESP 18; TEMP 97.2; O2SAT 97
--- NOTE | 2016-05-18 04:27 | NUR ---
SPUTUM collected & sent to lab / .
[2016-05-18 07:03] LABS: BASOPHILS % (AUTO) 0.8 % (0.0-2.0); EOSINOPHILS # (AUTO) 0.4 K/uL (0.0-0.4); EOSINOPHILS % (AUTO) 9.5 % (0.0-4.0); HEMATOCRIT 35.6 % (36-54); HEMOGLOBIN 11.4 g/dL (14.0-18.0); LYMPHOCYTES # (AUTO) 0.5 K/uL (1.0-5.5); LYMPHOCYTES % (AUTO) 10.9 % (20.5-51.5); MEAN CORPUSCULAR HEMOGLOBIN 27 pg (27-31); MEAN CORPUSCULAR HGB CONC 32 % (32-36); MEAN CORPUSCULAR VOLUME 83 fL (79.0-98.0); MONOCYTES # (AUTO) 0.5 K/uL (0.0-1.0); MONOCYTES % (AUTO) 11.4 % (1.7-9.3); NEUTROPHILS # (AUTO) 2.9 K/uL (1.8-7.7); NEUTROPHILS % (AUTO) 67.4 % (40.0-70.0); PLATELET COUNT (AUTO) 215 K/uL (130-430); RED BLOOD CELL COUNT(AUTO) 4.27 MIL/uL (4.2-6.2); RED CELL DISTRIBUTION WIDTH 15.7 % (9.0-15.0); WHITE BLOOD COUNT (AUTO) 4.3 K/uL (4.8-10.8)
--- NOTE | 2016-05-18 07:30 | NUR ---
Initial Note Received patient from scene shifter nurse, patient is resting in bed, no complaints of pain, no signs of distress, breathing is even and unlabored, assessment complete, patient has IV on right forearm gauge 22, hep lock, AV shunt noted on left upper arm, reeducated patient on use of call levy, patient verbalized understanding, call levy left in patient's hand, bed in lowest position, two side rails up, fall and airborne isolation precautions in place, will continue to monitor patient.
[2016-05-18 07:31] LABS: CALCIUM 9.5 mg/dL (8.4-11.0); POTASSIUM 3.8 mmol/L (3.5-5.1)
[2016-05-18 07:43] LABS: CREATININE 8.87 mg/dL (0.55-1.30)
[2016-05-18 08:00] VITALS: BP 150/90; PULSE 88; RESP 16; TEMP 97.9; O2SAT 100
--- NOTE | 2016-05-18 08:40 | NUR ---
medications patient given morning medications, educated patient on potential side effects of medications, patient verbalized understanding, no other needs at this time, call levy left in patient's hand, bed in lowest position, two side rails up, fall and isolation precautions in place, will continue to monitor patient.
[2016-05-18] MEDS: ISOSORBIDE DINITRATE 20 MG TABLET (ISORDIL) PO SCH (08:46)
[2016-05-18] MEDS: LORazepam 1 MG TABLET PO SCH (08:46)
[2016-05-18] MEDS: FUROSEMIDE 80 MG TABLET PO SCH (08:47)
[2016-05-18] MEDS: LABETALOL HCL 100 MG TABLET PO SCH (08:47)
[2016-05-18] MEDS: hydrALAZINE HCL 25 MG TABLET PO SCH ×2 (08:48→14:02)
[2016-05-18] MEDS: ENALAPRIL MALEATE 10 MG TABLET (VASOTEC) PO SCH (08:51)
--- NOTE | 2016-05-18 10:30 | NUR ---
RN ROUNDS Patient is sitting up in bed, no signs of distress, no complaints of pain, instructed patient to use call levy if assistance is needed, patient verbalized understanding, will continue to monitor, fall and isolation precaution in place.
--- NOTE | 2016-05-18 12:15 | NUR ---
RN ROUNDS Patient is resting in bed, no signs of distress, patient states he does not have any pain at this time, no other needs at this time, will continue to monitor patient, call levy left in patient's hand, bed in lowest position, bed alarm on, two side rails up, fall precautions in place.
[2016-05-18 12:32] VITALS: Ht 175.3 cm; Wt 64.0 kg
[2016-05-18 12:41] VITALS: BP 143/81; PULSE 84; RESP 17; TEMP 98; O2SAT 97
--- NOTE | 2016-05-18 13:30 | NUR ---
RN ROUNDS Patient is currently resting in bed, no signs of distress, instructed patient to use call levy if assistance is needed, patient verbalized understanding, will continue to monitor
[2016-05-18] MEDS: HYDROcodone/ACETAMIN 10-325 MG TAB PO PRN (14:01)
--- NOTE | 2016-05-18 15:04 | NUR ---
RN ROUNDS Patient is sitting up in bed, call levy left in patient's hand, no other needs at this time, will continue to monitor, fall precautions in place,
[2016-05-18 16:47] VITALS: BP 139/80; PULSE 80; RESP 18; TEMP 98.4; O2SAT 96
[2016-05-18 17:05] VITALS: BP 137/80; PULSE 80; RESP 18; TEMP 98.4; O2SAT 96
[2016-05-18] MEDS ORDERED: AMOX-423 PO ×2 (17:13)
[2016-05-18] MEDS ORDERED: PHEL5 PO (17:18)
--- NOTE | 2016-05-18 17:35 | NUR ---
D/C Patient Patient given medication reconciliation form and D/C instructions. Exit Care provided. Patient verbalized understanding. MD discussed with patient the results and treatment provided. Ambulatory with steady gait for discharge to home. Patient in stable condition, ID band removed. IV catheter removed, intact and dressing applied, no active bleeding. Rx of Augumentin; phenergan given. Patient educated on pain management. All belongings sent with patient.
[2016-05-18] MEDS ORDERED: AMPICILLIN SODIUM/SULBACTAM NA 1.5 GM in NS 50 ML IV SCH (21:00)
--- NOTE | 2016-05-20 13:46 | NUR ---
Discharge Follow Up Phone Call: CIRCULATING NURSE called pt ([phone]), but pt's phone is not accepting calls at this time. CIRCULATING NURSE called and spoke with pt's dtr, Lisa ([phone]). Pt's dtr states that pt is doing well; pt's prescriptions have been filled; there are no questions regarding discharge or medication instructions; pt has a follow up appointment scheduled with PCP, Dr. Gibbs; pt checks his blood sugar as directed by PCP. Pt's dtr did not express any other needs or concerns and denied the need for additional follow up at this time. No further follow up phone calls required at this time.
== END 2016-05-18 17:35 | disposition home or self-care (01) | DRG 193 ==
LOC: SED 23:09 → STU 05-13 01:27
PROVIDERS: ADMIT Family Medicine; ATTEND Family Medicine
PROC: 5A1D60Z (ICD-10-PCS; principal; 2016-05-13)
DX: J14 Pneumonia due to Hemophilus influenzae (principal); N18.6 End stage renal disease; J90 Pleural effusion, not elsewhere classified; I13.2 Hypertensive heart and chronic kidney disease with heart failure and with stage 5 chronic kidney disease, or end stage renal disease; H54.8 Legal blindness, as defined in USA; F32.9 Major depressive disorder, single episode, unspecified; F41.9 Anxiety disorder, unspecified; G89.29 Other chronic pain; E11.319 Type 2 diabetes mellitus with unspecified diabetic retinopathy without macular edema; E11.22 Type 2 diabetes mellitus with diabetic chronic kidney disease; M54.9 Dorsalgia, unspecified; K70.9 Alcoholic liver disease, unspecified; I50.9 Heart failure, unspecified; K21.9 Gastro-esophageal reflux disease without esophagitis; Z79.4 Long term (current) use of insulin; Z99.2 Dependence on renal dialysis; Z82.49 Family history of ischemic heart disease and other diseases of the circulatory system; Z83.3 Family history of diabetes mellitus; Z79.899 Other long term (current) drug therapy
CPT/HCPCS: 36415; 71010; 80048; 80053; 82550-TC; 82962; 83605; 84484; 85025; 85610-TC; 85730-TC; 86480; 86738; 87040-TC; 87070-TC; 87081; 87116; 87205-TC; 90935; 90937; 93005; 94640; 94760; 96365; 96367; 96375; 99291; J0295; J0456; J0696; J1815; J1940; J2060; J2543; J3370; J3475; J7030; J7040; J7050

== ENCOUNTER 2016-11-07 19:29 | Inpatient (IN) | payer OTHER, MEDICAID ==
[~2016-11-07] VITALS: Ht 172.7 cm; Wt 64.9 kg
[~2016-11-07 19:29] MED LIST changes: +AMOX-423 PO; -BEN50 PO; -ENAL20TA70 PO; -HYDR1TAB4 PO; -LABE200T28 PO; +PHEL5 PO; -SEVE800T10 PO
[2016-11-07 19:42] VITALS: BP_SYST 165
[2016-11-07] MEDS ORDERED: NS 500 ML IV ONE (20:30)
[2016-11-07] MEDS ORDERED: ONDANSETRON HCL 4 MG/2 ML VIAL IVP ONE (20:30)
[2016-11-07] MEDS ORDERED: LORazepam 1 MG TABLET PO ONE (20:45)
[2016-11-07 20:51] LABS: EOSINOPHILS # (AUTO) 0.1 K/uL (0.0-0.4); HEMOGLOBIN 11.1 g/dL (14.0-18.0); LYMPHOCYTES # (AUTO) 0.6 K/uL (1.0-5.5); RED CELL DISTRIBUTION WIDTH 16.7 % (9.0-15.0)
[2016-11-07 20:54] LABS: BASOPHILS % (AUTO) 1.1 % (0.0-2.0); EOSINOPHILS % (AUTO) 1.7 % (0.0-4.0); HEMATOCRIT 34.5 % (36-54); LYMPHOCYTES % (AUTO) 14.5 % (20.5-51.5); MEAN CORPUSCULAR HEMOGLOBIN 27 pg (27-31); MEAN CORPUSCULAR HGB CONC 32 % (32-36); MEAN CORPUSCULAR VOLUME 84 fL (79.0-98.0); MONOCYTES # (AUTO) 0.3 K/uL (0.0-1.0); MONOCYTES % (AUTO) 8.5 % (1.7-9.3); NEUTROPHILS % (AUTO) 74.2 % (40.0-70.0); RED BLOOD CELL COUNT(AUTO) 4.13 MIL/uL (4.2-6.2)
[2016-11-07 20:56] LABS: PLATELET COUNT (AUTO) 156 K/uL (130-430)
[2016-11-07 21:04] LABS: CALCIUM 9.9 mg/dL (8.4-11.0); CREATININE 5.78 mg/dL (0.55-1.30); POTASSIUM 4.2 mmol/L (3.5-5.1)
[2016-11-07 21:15] LABS: ALBUMIN 3.4 g/dL (3.4-4.8); TOTAL BILIRUBIN 0.7 mg/dL (0.0-1.0)
[2016-11-07] MEDS ORDERED: FUROSEMIDE 40 MG/4 ML VIAL IVP ONE (21:30)
[2016-11-07] MEDS ORDERED: SEVE800T8 PO (21:48)
[2016-11-07] MEDS ORDERED: ALPR2TAB2 PO (21:49)
[2016-11-07] MEDS ORDERED: INSULIN REGULAR, HUMAN 100 UNITS/ML, 10 ML VIAL (novoLIN R) SUBCUT PRN (22:00)
[2016-11-07 22:30] VITALS: BP_SYST 170
[2016-11-07] MEDS ORDERED: FLU VACC QS 2017-18(36MOS+)/PF 0.5 ML/SYR SYRINGE I.M. PRN (23:15)
[2016-11-07 23:56] VITALS: BP_SYST 158
[2016-11-08] MEDS ORDERED: NITROGLYCERIN 0.4 MG TAB.SUBL SL PRN
[2016-11-08] MEDS ORDERED: ALPRAZolam 0.25 MG TABLET PO PRN
[2016-11-08] MEDS ORDERED: ALBUTEROL SULFATE 0.083% 2.5 MG/3 ML VIAL.NEB INH PRN (00:15)
[2016-11-08] MEDS ORDERED: cloNIDine HCL 0.1 MG TABLET PO PRN (00:30)
[2016-11-08 00:52] VITALS: BP_SYST 169
[2016-11-08] MEDS: ZOLPIDEM TARTRATE 5 MG TABLET PO PRN ×2 (01:07→23:40)
[2016-11-08] MEDS: LevALBUTEROL HCL 1.25 MG/0.5 ML *CONC.* VIAL.NEB (XOPENEX CONC.) INH SCH ×4 (01:11→20:03)
[2016-11-08 04:32] VITALS: BP_SYST 132
[2016-11-08 08:33] VITALS: BP_SYST 178
[2016-11-08] MEDS: PROMETHAZINE HCL 6.25 MG/5 ML UDC PO SCH (08:37)
[2016-11-08] MEDS: LORazepam 1 MG TABLET PO SCH ×2 (08:37→20:55)
[2016-11-08] MEDS: FUROSEMIDE 80 MG TABLET PO SCH (08:37)
[2016-11-08] MEDS: hydrALAZINE HCL 25 MG TABLET PO SCH ×3 (08:38→20:53)
[2016-11-08] MEDS: ISOSORBIDE DINITRATE 20 MG TABLET (ISORDIL) PO SCH ×2 (08:38→20:54)
[2016-11-08] MEDS: ENALAPRIL MALEATE 10 MG TABLET (VASOTEC) PO SCH ×2 (08:39→20:55)
[2016-11-08 12:33] VITALS: BP_SYST 151
[2016-11-08 16:22] VITALS: BP_SYST 145
[2016-11-08 20:00] VITALS: BP_SYST 163
[2016-11-08] MEDS: SIMVASTATIN 10 MG TABLET PO SCH (20:53)
[2016-11-09 00:11] VITALS: BP_SYST 158
[2016-11-09] MEDS: LevALBUTEROL HCL 1.25 MG/0.5 ML *CONC.* VIAL.NEB (XOPENEX CONC.) INH SCH ×4 (00:58→20:02)
[2016-11-09 04:09] VITALS: BP_SYST 161
[2016-11-09 08:20] VITALS: BP_SYST 154
[2016-11-09] MEDS: hydrALAZINE HCL 25 MG TABLET PO SCH ×3 (08:48→20:43)
[2016-11-09] MEDS: HYDROcodone/ACETAMIN 10-325 MG TAB PO PRN (08:48)
[2016-11-09] MEDS: LORazepam 1 MG TABLET PO SCH ×2 (08:49→20:45)
[2016-11-09] MEDS: PROMETHAZINE HCL 6.25 MG/5 ML UDC PO SCH (08:50)
[2016-11-09] MEDS: ENALAPRIL MALEATE 10 MG TABLET (VASOTEC) PO SCH ×2 (08:50→20:44)
[2016-11-09] MEDS: ISOSORBIDE DINITRATE 20 MG TABLET (ISORDIL) PO SCH ×2 (08:50→20:48)
[2016-11-09] MEDS: FUROSEMIDE 80 MG TABLET PO SCH (08:50)
[2016-11-09] MEDS ORDERED: DIPHENOXYLATE HCL/ATROP SULF 2.5 MG TAB PO ONE (10:00)
[2016-11-09] MEDS ORDERED: DIPHENOXYLATE HCL/ATROP SULF 2.5 MG TAB PO PRN (10:00)
[2016-11-09 12:15] VITALS: BP_SYST 171
[2016-11-09 16:25] VITALS: BP_SYST 171
[2016-11-09 20:00] VITALS: BP_SYST 167
[2016-11-09] MEDS: LABETALOL HCL 100 MG TABLET PO SCH (20:42)
[2016-11-09] MEDS: SIMVASTATIN 10 MG TABLET PO SCH (20:43)
[2016-11-09] MEDS: ZOLPIDEM TARTRATE 5 MG TABLET PO PRN (23:27)
[2016-11-10] MEDS: LevALBUTEROL HCL 1.25 MG/0.5 ML *CONC.* VIAL.NEB (XOPENEX CONC.) INH SCH ×3 (01:00→14:32)
[2016-11-10 07:50] VITALS: BP_SYST 127; BP_SYST 152
[2016-11-10] MEDS: LORazepam 1 MG TABLET PO SCH (08:36)
[2016-11-10] MEDS: hydrALAZINE HCL 25 MG TABLET PO SCH ×2 (08:37→15:09)
[2016-11-10] MEDS: FUROSEMIDE 80 MG TABLET PO SCH (08:38)
[2016-11-10] MEDS: ISOSORBIDE DINITRATE 20 MG TABLET (ISORDIL) PO SCH (08:38)
[2016-11-10] MEDS: ENALAPRIL MALEATE 10 MG TABLET (VASOTEC) PO SCH (08:39)
[2016-11-10] MEDS: LABETALOL HCL 100 MG TABLET PO SCH (08:40)
[2016-11-10] MEDS: PROMETHAZINE HCL 6.25 MG/5 ML UDC PO SCH (08:40)
[2016-11-10 14:13] VITALS: BP_SYST 143
[2016-11-10] MEDS: HYDROcodone/ACETAMIN 10-325 MG TAB PO PRN (15:16)
[2016-11-10 16:50] VITALS: BP_SYST 125
[2016-11-10 19:32] VITALS: BP_SYST 168
== END 2016-11-10 19:55 | disposition home or self-care (01) | DRG 291 ==
LOC: SED 19:29 → STU 22:08
PROVIDERS: ADMIT Family Medicine; ATTEND Family Medicine
PROC: 5A1D00Z (ICD-10-PCS; principal; 2016-11-10)
DX: I13.2 Hypertensive heart and chronic kidney disease with heart failure and with stage 5 chronic kidney disease, or end stage renal disease (principal); I50.23 Acute on chronic systolic (congestive) heart failure; N18.6 End stage renal disease; E11.22 Type 2 diabetes mellitus with diabetic chronic kidney disease; K29.00 Acute gastritis without bleeding; E78.5 Hyperlipidemia, unspecified; F41.9 Anxiety disorder, unspecified; H54.8 Legal blindness, as defined in USA; J45.909 Unspecified asthma, uncomplicated; K52.9 Noninfective gastroenteritis and colitis, unspecified; Z99.2 Dependence on renal dialysis; Z79.899 Other long term (current) drug therapy
CPT/HCPCS: 36415; 71010; 80053; 82962; 83690-TC; 83880; 85025; 86710; 87081; 90935; 93005; 94640; 94760; 96361; 96374; 99285; J1815; J2405; J7030; J7040; Q0169; Q2037

== ENCOUNTER 2016-11-29 09:52 | Emergency (ER) | payer OTHER, MEDICAID ==
[~2016-11-29] VITALS: Ht 175.3 cm; Wt 63.5 kg
[~2016-11-29 09:52] MED LIST changes: +ALPR2TAB2 PO; -AMOX-423 PO; -RENVELA; +SEVE800T8 PO
[2016-11-29 10:01] VITALS: BP_SYST 146
[2016-11-29] MEDS ORDERED: guaiFENesin ER 600 MG TAB PO ONE (10:15)
[2016-11-29] MEDS ORDERED: methylPREDNISolone SOD SUCC/PF 62.5 MG/ML VIAL IM ONE (10:15)
[2016-11-29] MEDS ORDERED: IPRATROPIUM/ALBUTEROL SULFATE 3 ML AMPUL.NEB INH ONE (10:15)
[2016-11-29 10:30] LABS: BASOPHILS % (AUTO) 0.9 % (0.0-2.0); EOSINOPHILS # (AUTO) 0.2 K/uL (0.0-0.4); HEMATOCRIT 33.7 % (36-54); HEMOGLOBIN 10.9 g/dL (14.0-18.0); LYMPHOCYTES # (AUTO) 0.4 K/uL (1.0-5.5); LYMPHOCYTES % (AUTO) 15.6 % (20.5-51.5); MEAN CORPUSCULAR HEMOGLOBIN 27 pg (27-31); MEAN CORPUSCULAR HGB CONC 32 % (32-36); MEAN CORPUSCULAR VOLUME 83 fL (79.0-98.0); MONOCYTES # (AUTO) 0.3 K/uL (0.0-1.0); MONOCYTES % (AUTO) 10.6 % (1.7-9.3); NEUTROPHILS # (AUTO) 1.8 K/uL (1.8-7.7); NEUTROPHILS % (AUTO) 65.9 % (40.0-70.0); PLATELET COUNT (AUTO) 162 K/uL (130-430); RED BLOOD CELL COUNT(AUTO) 4.07 MIL/uL (4.2-6.2); RED CELL DISTRIBUTION WIDTH 17.7 % (9.0-15.0); WHITE BLOOD COUNT (AUTO) 2.7 K/uL (4.8-10.8)
[2016-11-29 10:45] LABS: ALBUMIN 3.1 g/dL (3.4-4.8); CALCIUM 10.1 mg/dL (8.4-11.0); POTASSIUM 4.4 mmol/L (3.5-5.1); TOTAL BILIRUBIN 0.5 mg/dL (0.0-1.0)
[2016-11-29 10:47] LABS: CREATININE 8.21 mg/dL (0.55-1.30)
[2016-11-29 11:29] VITALS: BP_SYST 154
== END 2016-11-29 11:29 | disposition home or self-care (01) ==
LOC: SED 09:52
DX: J18.9 Pneumonia, unspecified organism (principal); I13.2 Hypertensive heart and chronic kidney disease with heart failure and with stage 5 chronic kidney disease, or end stage renal disease; E11.22 Type 2 diabetes mellitus with diabetic chronic kidney disease; N18.6 End stage renal disease; I50.9 Heart failure, unspecified; H54.7 Unspecified visual loss; E11.319 Type 2 diabetes mellitus with unspecified diabetic retinopathy without macular edema; Z99.2 Dependence on renal dialysis; Z79.4 Long term (current) use of insulin
CPT/HCPCS: 36415; 71010; 80053; 83605; 83880; 85025; 93005; 94640; 96372; 99285; J2930